=== PATIENT | female | born 1980 | race Caucasian/White ===

== ENCOUNTER 2019-05-04 10:02 | Emergency (ER) | payer OTHER ==
[~2019-05-04] VITALS: Ht 160 cm; Wt 73.0 kg
[2019-05-04] MEDS ORDERED: SODIUM CHLORIDE 0.9% 1,000 ML IVB ONE (10:54)
[2019-05-04] MEDS ORDERED: ONDANSETRON HCL 4 MG/2 ML VIAL IV ONE (11:00)
[2019-05-04] MEDS ORDERED: MORPHINE SULFATE 4 MG/ML SYR/VIAL IV ONE ×2 (11:00→15:30)
[2019-05-04 13:35] LABS: Basophils # (auto) 0.1 uL; Basophils % (auto) 0.7 % (0.0-2.0); Eosinophils # (auto) 0.2 uL; Hematocrit 35.6 % (36.0-46.0); Hemoglobin 11.9 g/dL (12.2-16.2); Lymphocytes # (auto) 3.3 uL; Lymphocytes % (auto) 33.2 % (10.0-50.0); Mean Corpuscular Hemoglobin 30.2 pg (28.0-32.0); Mean Corpuscular Hgb Conc. 33.4 g/dL (32.0-36.0); Mean Corpuscular Volume 90.5 fL (80.0-100.0); Monocytes # (auto) 0.4 uL; Monocytes % (auto) 4.2 % (0.0-12.0); Neutrophils % (auto) 59.9 % (37.0-80.0); Platelet Count (auto) 344 10^3/uL (140-450); Red Blood Cells 3.93 10^6/uL (4.0-5.20); Red Cell Distribution Width 13.5 % (11.8-14.3)
[2019-05-04 13:51] LABS: Albumin 3.5 g/dL (3.4-5.0); BUN/Creatinine Ratio 13.2; Calcium 8.3 mg/dL (8.5-10.1)
[2019-05-04 13:54] LABS: Bilirubin, Total 0.9 mg/dL (0.2-1.0); Total Protein 7.1 g/dL (6.4-8.2)
[2019-05-04] MEDS ORDERED: VALPROATE INJ 1,000 MG in SODIUM CHL 0.9% 100 ML IV ONE (14:30)
[2019-05-04 16:14] VITALS: BP 131/81
== END 2019-05-04 16:35 | disposition home or self-care (01) ==
LOC: ER 10:02 → EDBD 10:02 → ER 16:35
DX: G40.409 Other generalized epilepsy and epileptic syndromes, not intractable, without status epilepticus (principal); G89.29 Other chronic pain; M54.89 Other dorsalgia; R11.2 Nausea with vomiting, unspecified; I10 Essential (primary) hypertension; F17.210 Nicotine dependence, cigarettes, uncomplicated; Z98.51 Tubal ligation status; Z98.890 Other specified postprocedural states; Z88.6 Allergy status to analgesic agent; Z88.8 Allergy status to other drugs, medicaments and biological substances
CPT/HCPCS: 36415; 80053; 80164; 85025; 94761; 96361; 96365; 96375; 96376; 99283; J2270; J2405

== ENCOUNTER 2019-07-21 14:55 | Emergency (ER) | payer OTHER ==
[~2019-07-21] VITALS: Ht 167.6 cm; Wt 83.9 kg
[2019-07-21 16:26] LABS: Basophils # (auto) 0 uL; Basophils % (auto) 0.3 % (0.0-2.0); Eosinophils # (auto) 0.1 uL; Eosinophils % (auto) 1.1 % (0.0-7.0); Hematocrit 40.4 % (36.0-46.0); Hemoglobin 13.6 g/dL (12.2-16.2); Lymphocytes # (auto) 1.2 uL; Lymphocytes % (auto) 14.4 % (10.0-50.0); Mean Corpuscular Hemoglobin 30.8 pg (28.0-32.0); Mean Corpuscular Hgb Conc. 33.8 g/dL (32.0-36.0); Mean Corpuscular Volume 91.1 fL (80.0-100.0); Monocytes # (auto) 0.4 uL; Monocytes % (auto) 4.7 % (0.0-12.0); Neutrophils # (auto) 6.6 uL; Neutrophils % (auto) 79.5 % (37.0-80.0); Platelet Count (auto) 316 10^3/uL (140-450); Red Blood Cells 4.43 10^6/uL (4.0-5.20); Red Cell Distribution Width 14.1 % (11.8-14.3); White Blood Cell 8.3 10^3/uL (4.4-10.8)
[2019-07-21 16:31] LABS: Urine WBC None Seen /hpf (0 - 5)
[2019-07-21 16:38] LABS: Urine Bacteria NONE SEEN /hpf (None Seen); Urine Blood Negative /uL (Negative); Urine Specific Gravity 1.012 (1.001-1.035)
[2019-07-21 16:39] LABS: Albumin 3.3 g/dL (3.4-5.0); Potassium 3.6 mmol/L (3.5-5.1)
[2019-07-21 16:42] LABS: BUN/Creatinine Ratio 8.4; Bilirubin, Total 0.4 mg/dL (0.2-1.0); Total Protein 7.3 g/dL (6.4-8.2)
[2019-07-21] MEDS ORDERED: LEVETIRACETAM INJ 1,000 MG in D5W 5% 100 ML IV ONE (16:45)
[2019-07-21 17:44] VITALS: BP 135/91
[2019-07-21] MEDS ORDERED: ACETAMINOPHEN 650 mg PER 20 mL UD GT ONE (19:00)
== END 2019-07-21 19:05 | disposition home or self-care (01) ==
LOC: EDBD 14:55 → ER 14:55
DX: G40.909 Epilepsy, unspecified, not intractable, without status epilepticus (principal); R41.82 Altered mental status, unspecified; I10 Essential (primary) hypertension; Z88.8 Allergy status to other drugs, medicaments and biological substances
CPT/HCPCS: 36415; 70450; 72125; 80053; 80164; 81001; 81025; 85025; 96365; 99284; J1953; J7060

== ENCOUNTER 2019-09-24 14:35 | Emergency (ER) | payer OTHER ==
[~2019-09-24] VITALS: Ht 172.7 cm; Wt 81.6 kg
[2019-09-24 15:24] LABS: Basophils # (auto) 0 uL; Basophils % (auto) 0.5 % (0.0-2.0); Eosinophils # (auto) 0.3 uL; Eosinophils % (auto) 3.3 % (0.0-7.0); Hematocrit 37.2 % (36.0-46.0); Hemoglobin 12.4 g/dL (12.2-16.2); Lymphocytes # (auto) 2.4 uL; Lymphocytes % (auto) 29.2 % (10.0-50.0); Mean Corpuscular Hemoglobin 31.3 pg (28.0-32.0); Mean Corpuscular Hgb Conc. 33.4 g/dL (32.0-36.0); Mean Corpuscular Volume 93.7 fL (80.0-100.0); Monocytes # (auto) 0.4 uL; Monocytes % (auto) 5.3 % (0.0-12.0); Neutrophils % (auto) 61.7 % (37.0-80.0); Nucleated Red Blood Cells % 0.1 %; Platelet Count (auto) 372 10^3/uL (140-450); Red Blood Cells 3.97 10^6/uL (4.0-5.20); Red Cell Distribution Width 12.9 % (11.8-14.3)
[2019-09-24 15:38] LABS: Albumin 3.6 g/dL (3.4-5.0); Calcium 9.2 mg/dL (8.5-10.1); Potassium 3.8 mmol/L (3.5-5.1)
[2019-09-24 15:40] LABS: BUN/Creatinine Ratio 10.3; Bilirubin, Total 0.3 mg/dL (0.2-1.0); Total Protein 7.4 g/dL (6.4-8.2)
[2019-09-24] MEDS ORDERED: LORazepam 2MG/ML-1ML VIAL ONE (17:09)
[2019-09-24] MEDS ORDERED: LORazepam 2MG/ML-1ML VIAL IV ONE (17:15)
[2019-09-24] MEDS ORDERED: VALPROATE INJ 1,000 MG in SODIUM CHL 0.9% 100 ML IV ONE (17:15)
[2019-09-24 17:39] LABS: Urine Bacteria FEW /hpf (None Seen); Urine Blood Negative /uL (Negative); Urine Hyaline Cast FEW /lpf (0 - 2); Urine Mucus FEW (None Seen); Urine Specific Gravity 1.011 (1.001-1.035); Urine WBC 10 /hpf (0 - 5)
[2019-09-24 17:46] LABS: Alcohol, Urine < 3.0 mg/dL (0-5); Amphetamine Screen, Urine NEGATIVE (NEGATIVE); Barbiturate Scree,Urine NEGATIVE (NEGATIVE); Benzodiazephine Screen, Urine NEGATIVE (NEGATIVE); Cannabinoid Screen, Urine NEGATIVE (NEGATIVE); Cocaine Screen, Urine NEGATIVE (NEGATIVE); Opiate Scree,Urine POSITIVE (NEGATIVE); Phencyclidine Screen, Urine NEGATIVE (NEGATIVE)
[2019-09-24 20:00] VITALS: BP 109/72
[2019-09-24] MEDS ORDERED: TEMAZEPAM 15 MG CAP PO PRN (20:45)
[2019-09-24] MEDS ORDERED: ALPRAZolam 0.5 MG TAB PO PRN (20:45)
[2019-09-24] MEDS ORDERED: LORazepam 2MG/ML-1ML VIAL IV PRN (20:45)
[2019-09-24] MEDS ORDERED: ACETAMINOPHEN 325 MG TAB PO PRN (20:45)
[2019-09-24] MEDS ORDERED: ONDANSETRON HCL 4 MG/2 ML VIAL IV PRN (20:45)
[2019-09-24] MEDS ORDERED: cefTRIAXone 1GM/50ML D5W 50 ML IV ONE (20:45)
[2019-09-24] MEDS ORDERED: AMITRIPTYLINE HCL 25 MG TAB PO SCH (22:00)
[2019-09-24] MEDS ORDERED: LEVETIRACETAM 500 MG TAB PO SCH (22:00)
[2019-09-24] MEDS ORDERED: FAMOTIDINE 20 MG TAB PO SCH (22:00)
[2019-09-25] MEDS ORDERED: cefTRIAXone 1GM/50ML D5W 50 ML IV SCH (09:00)
[2019-10-01] MEDS ORDERED: ZONI100C43 PO (14:34)
== END 2019-09-24 20:54 | disposition left against medical advice (07) ==
LOC: EDBD 14:35 → ER 14:35
DX: S09.90XA Unspecified injury of head, initial encounter (principal); R56.9 Unspecified convulsions; N39.0 Urinary tract infection, site not specified; W19.XXXA Unspecified fall, initial encounter; Y93.89 Activity, other specified; Y92.89 Other specified places as the place of occurrence of the external cause; Y99.8 Other external cause status
CPT/HCPCS: 36415; 70450; 71045; 72125; 80053; 80164; 80307; 81001; 83735; 85025; 93005; 96365; 96375; 99285; J2060

== ENCOUNTER 2020-05-12 20:04 | Emergency (ER) | payer OTHER ==
[~2020-05-12] VITALS: Ht 170.2 cm; Wt 74.8 kg
[~2020-05-12 20:04] MED LIST: ZONI100C43 PO
[2020-05-12] MEDS ORDERED: HYDROcodone-ACET 10/325MG TAB PO ONE (22:15)
[2020-05-12] MEDS ORDERED: ONDANSETRON HCL 4 MG/2 ML VIAL IV ONE (22:45)
[2020-05-12] MEDS ORDERED: MORPHINE SULFATE 4 MG/ML SYR/VIAL IV ONE (22:45)
[2020-05-13] MEDS ORDERED: MORPHINE SULF INJ 2 MG/ML SYRINGE 1ML IV ONE (00:15)
[2020-05-13 00:37] VITALS: BP 126/72
[2020-05-15] MEDS ORDERED: InsuLIN REG 1unit/0.01ml Soln (100units/ml) ONE (08:59)
[2020-05-15] MEDS ORDERED: SODIUM BICARBONATE 8.4% INJ 50ML SYRINGE ONE (08:59)
[2020-05-15] MEDS ORDERED: DEXTROSE 50% SYRINGE 50 ML IV ONE (08:59)
[2020-05-15] MEDS ORDERED: FUROSEMIDE 40 MG/4 ML VIAL ONE (09:12)
== END 2020-05-13 00:52 | disposition home or self-care (01) ==
LOC: EDBD 20:04 → ER 20:11
DX: S92.242A Displaced fracture of medial cuneiform of left foot, initial encounter for closed fracture (principal); F41.9 Anxiety disorder, unspecified; F32.9 Major depressive disorder, single episode, unspecified; I10 Essential (primary) hypertension; Z79.899 Other long term (current) drug therapy; Z88.8 Allergy status to other drugs, medicaments and biological substances; Z88.6 Allergy status to analgesic agent; X50.1XXA Overexertion from prolonged static or awkward postures, initial encounter; Y93.89 Activity, other specified; Y92.89 Other specified places as the place of occurrence of the external cause; Y99.8 Other external cause status
CPT/HCPCS: 29515; 73630; 96374; 96375; 96376; 99284; J2270; J2405; J1815

== ENCOUNTER 2020-05-14 15:02 | Inpatient (IN) | payer OTHER ==
[~2020-05-14] VITALS: Ht 157.5 cm; Wt 64.5 kg
[2020-05-14] MEDS ORDERED: SODIUM CHLORIDE 0.9% 1,000 ML IV ONE ×3 (15:16→17:15)
[2020-05-14 16:13] LABS: Basophils # (auto) 0 10 ^3/uL (0-0.2); Basophils % (auto) 0.4 % (0.0-2.0); Eosinophils # (auto) 0.2 10 ^3/uL (0-0.8); Eosinophils % (auto) 1.4 % (0.0-7.0); Hematocrit 33.1 % (36.0-46.0); Hemoglobin 10.4 g/dL (12.2-16.2); Lymphocytes # (auto) 2.4 10 ^3/uL (0.4-5.4); Lymphocytes % (auto) 19.2 % (10.0-50.0); Mean Corpuscular Hemoglobin 28.9 pg (28.0-32.0); Mean Corpuscular Hgb Conc. 31.6 g/dL (32.0-36.0); Mean Corpuscular Volume 91.7 fL (80.0-100.0); Monocytes # (auto) 1.2 10 ^3/uL (0-1.3); Monocytes % (auto) 9.5 % (0.0-12.0); Neutrophils # (auto) 8.6 10 ^3/uL (1.6-8.6); Neutrophils % (auto) 69.5 % (37.0-80.0); Platelet Count (auto) 375 10^3/uL (140-450); Red Blood Cells 3.61 10^6/uL (4.0-5.20); Red Cell Distribution Width 14.5 % (11.8-14.3); White Blood Cell 12.3 10^3/uL (4.4-10.8)
[2020-05-14 16:31] LABS: Potassium 4.9 mmol/L (3.5-5.1)
[2020-05-14 16:37] LABS: Albumin 3.3 g/dL (3.4-5.0); BUN/Creatinine Ratio 7.8; Bilirubin, Total 0.8 mg/dL (0.2-1.0); Calcium 8.5 mg/dL (8.5-10.1); Total Protein 7.1 g/dL (6.4-8.2)
[2020-05-14 17:22] LABS: Acetaminophen < 2.0 ug/mL (10-30); Salicylate < 1.7 mg/dL (2.8-20.0)
[2020-05-14] MEDS ORDERED: NOREPINEPHRINE 8 MG/250ML KIT 250 ML IV ONE (17:36)
[2020-05-14] MEDS: NOREPINEPHRINE 8 MG/250ML KIT 250 ML IV SCH (17:41)
[2020-05-14 17:42] LABS: INR 1.08 (0.9-1.15)
[2020-05-14] MEDS ORDERED: ENOXAPARIN SOD 100 MG/1 ML SYRINGE SC ONE (17:45)
[2020-05-14 18:20] LABS: Alcohol, Urine < 3.0 mg/dL (0-10); Amphetamine Screen, Urine NEGATIVE (NEGATIVE); Barbiturate Scree,Urine NEGATIVE (NEGATIVE); Benzodiazephine Screen, Urine NEGATIVE (NEGATIVE); Cannabinoid Screen, Urine NEGATIVE (NEGATIVE); Cocaine Screen, Urine NEGATIVE (NEGATIVE); Opiate Scree,Urine POSITIVE (NEGATIVE); Phencyclidine Screen, Urine NEGATIVE (NEGATIVE)
[2020-05-14 18:35] LABS: Urine Bacteria NONE SEEN /hpf (None Seen); Urine Blood Negative /uL (Negative); Urine Hyaline Cast MANY /lpf (0 - 2); Urine Mucus FEW (None Seen); Urine Specific Gravity 1.027 (1.001-1.035); Urine WBC 4 /hpf (0 - 5)
[2020-05-14] MEDS ORDERED: ZOLPIDEM TARTRATE 5 MG TAB PO PRN (21:15)
[2020-05-14] MEDS ORDERED: LORazepam 0.5 MG TAB PO PRN (21:15)
[2020-05-14] MEDS ORDERED: ONDANSETRON HCL 4 MG/2 ML VIAL IV PRN (21:15)
[2020-05-14] MEDS ORDERED: ACETAMINOPHEN 325 MG TAB PO PRN (21:15)
[2020-05-14] MEDS ORDERED: NITROGLYCERIN 0.4 MG SL TAB SL PRN (21:15)
[2020-05-14] MEDS ORDERED: MORPHINE SULF INJ 2 MG/ML SYRINGE 1ML IV PRN (21:15)
[2020-05-14] MEDS: CARVEDILOL 3.125 MG TAB PO SCH (22:00)
[2020-05-14] MEDS: ATORVASTATIN 20 MG TAB PO SCH (22:00)
[2020-05-14] MEDS: SODIUM CHLORIDE 0.9% 1,000 ML IV SCH (22:19)
[2020-05-14 23:51] LABS: Albumin 2.8 g/dL (3.4-5.0); Anion Gap 10 (5-15); BUN/Creatinine Ratio 8.5; Blood Urea Nitrogen 33 mg/dL (7-18); Calcium 7.8 mg/dL (8.5-10.1); Carbon Dioxide 19 mmol/L (21-32); Chloride 109 mmol/L (98-107); GFR African American 17 mL/min; GFR Non-African American 14 mL/min; Glucose 101 mg/dL (74-106); Sodium 138 mmol/L (136-145)
[2020-05-14 23:54] LABS: Alanine Aminotransferase 36 U/L (13-56); Alkaline Phosphatase 99 U/L (45-117); Aspartate Aminotransferase 25 U/L (15-37); Bilirubin, Total 0.6 mg/dL (0.2-1.0); Total Protein 6.7 g/dL (6.4-8.2)
[2020-05-15] MEDS: SODIUM CHLORIDE 0.9% 1,000 ML IV SCH (07:02)
[2020-05-15 08:06] LABS: Albumin 3.2 g/dL (3.4-5.0); Calcium 8.2 mg/dL (8.5-10.1)
[2020-05-15 08:10] LABS: BUN/Creatinine Ratio 13.7; Basophils # (auto) 0.1 10 ^3/uL (0-0.2); Basophils % (auto) 0.8 % (0.0-2.0); Bilirubin, Total 0.5 mg/dL (0.2-1.0); Eosinophils # (auto) 0 10 ^3/uL (0-0.8); Eosinophils % (auto) 0.1 % (0.0-7.0); Hematocrit 34.2 % (36.0-46.0); Hemoglobin 11.2 g/dL (12.2-16.2); Lymphocytes # (auto) 0.9 10 ^3/uL (0.4-5.4); Lymphocytes % (auto) 8.2 % (10.0-50.0); Mean Corpuscular Hemoglobin 29.3 pg (28.0-32.0); Mean Corpuscular Hgb Conc. 32.7 g/dL (32.0-36.0); Mean Corpuscular Volume 89.6 fL (80.0-100.0); Monocytes # (auto) 0.3 10 ^3/uL (0-1.3); Monocytes % (auto) 2.8 % (0.0-12.0); Neutrophils # (auto) 9.5 10 ^3/uL (1.6-8.6); Neutrophils % (auto) 88.1 % (37.0-80.0); Platelet Count (auto) 330 10^3/uL (140-450); Red Blood Cells 3.81 10^6/uL (4.0-5.20); Red Cell Distribution Width 13.9 % (11.8-14.3); Total Protein 7.3 g/dL (6.4-8.2); White Blood Cell 10.8 10^3/uL (4.4-10.8)
[2020-05-15 08:18] LABS: Potassium 5.7 mmol/L (3.5-5.1)
[2020-05-15] MEDS ORDERED: InsuLIN REG 1unit/0.01ml Soln (100units/ml) IV ONE (08:45)
[2020-05-15] MEDS ORDERED: SODIUM BICARBONATE 8.4 % INJ 50ML VIAL IV ONE (08:45)
[2020-05-15] MEDS ORDERED: FUROSEMIDE 40 MG/4 ML VIAL IV ONE (08:45)
[2020-05-15] MEDS ORDERED: DEXTROSE (50%) 50ML SYRG IV ONE (08:45)
[2020-05-15] MEDS ORDERED: SODIUM CHLORIDE 0.9% 1,000 ML IV ONE (08:45)
[2020-05-15] MEDS: ASPirin 81 mg TAB PO SCH (09:44)
[2020-05-15] MEDS: DOCUSATE SOD 100 MG CAP PO SCH (09:45)
[2020-05-15] MEDS: CLOPIDOGREL BISULFATE 75 MG TAB PO SCH (09:47)
[2020-05-15] MEDS: CARVEDILOL 3.125 MG TAB PO SCH (09:47)
[2020-05-15] MEDS ORDERED: ENOXAPARIN SOD 100 MG/1 ML SYRINGE SC SCH (10:00)
[2020-05-15] MEDS ORDERED: LISINOPRIL 10 MG TAB PO SCH (10:00)
[2020-05-15] MEDS: NOREPINEPHRINE 8 MG/250ML KIT 250 ML IV SCH (11:11)
[2020-05-15] MEDS: SODIUM BICARBONATE 50ML VIAL 50 ML in SOD CHL 0.45% 1,000 ML IV SCH ×2 (12:03→18:33)
[2020-05-15 12:05] LABS: Potassium 4.2 mmol/L (3.5-5.1)
[2020-05-15 13:08] LABS: Sodium Urine 128 mmol/L (40-220)
[2020-05-15 13:09] LABS: Protein, Urine 7.8 mg/dL (0.0-11.9)
[2020-05-15 13:17] LABS: Creatinine, Urine 11 mg/dL (30.0-125.0)
--- NOTE | 2020-05-15 13:30 | NUR ---
REPORT RECEIVED FROM GERALDO IN ER. WILL AWAIT PATIENT.
[2020-05-15 13:50] VITALS: BP 99/68
--- NOTE | 2020-05-15 13:50 | NUR ---
PATIENT IS A/O X 4 BED LOCKED IN LOWEST POSITION WITH TWO SIDE RAILS UP AND CALL LIGHT IN REACH.
[2020-05-15] MEDS ORDERED: DOXYCYCLINE 100 MG TAB/CAP PO ONE (15:45)
[2020-05-15] MEDS ORDERED: cefTRIAXone 1GM/50ML D5W 50 ML IV ONE (15:45)
[2020-05-15 17:29] VITALS: BP 95/49
--- NOTE | 2020-05-15 18:28 | NUR ---
TELE PSYCH MONITOR STILL IN USE WILL ENDORSE TO THE NOC NURSE.
--- NOTE | 2020-05-15 19:30 | NUR ---
Opening Shift Note Assumed care of patient, awake and alert. No S/S of distress/SOB or pain. Instructed on POC and to call for assist PRN, will continue to monitor for changes Q1hr and PRN.
--- NOTE | 2020-05-15 20:26 | NUR ---
patient transferred to room 218A with roger Report given no distress noted at time of transfer.
[2020-05-15 21:00] VITALS: BP 124/68
[2020-05-15] MEDS: DOXYCYCLINE 100 MG TAB/CAP PO SCH (21:53)
[2020-05-15] MEDS: ATORVASTATIN 20 MG TAB PO SCH (21:53)
[2020-05-15] MEDS ORDERED: ENOXAPARIN SOD 80 MG/0.8ML SYRINGE SC SCH (22:00)
[2020-05-16] MEDS: SODIUM BICARBONATE 50ML VIAL 50 ML in SOD CHL 0.45% 1,000 ML IV SCH (04:43)
[2020-05-16 05:00] VITALS: BP 113/72
[2020-05-16 06:56] LABS: Potassium 3.9 mmol/L (3.5-5.1)
[2020-05-16 07:06] LABS: Albumin 2.6 g/dL (3.4-5.0); BUN/Creatinine Ratio 23.2; Bilirubin, Total 0.4 mg/dL (0.2-1.0); Calcium 8.3 mg/dL (8.5-10.1); Phosphorus 1.8 mg/dL (2.5-4.90); Total Protein 5.7 g/dL (6.4-8.2)
--- NOTE | 2020-05-16 08:00 | NUR ---
Received pt resting in bed, call light with in reach, pt has lloyd draining to gravity, pt has a left leg splint, sitter at bed side will continue to monitor pt.
[2020-05-16] MEDS ORDERED: POTASSIUM PHOSPHATE 44 MEQ in D5W 5% 250 ML IV ONE (08:45)
[2020-05-16] MEDS ORDERED: cefTRIAXone 1GM/50ML D5W 50 ML IV SCH (09:00)
[2020-05-16] MEDS: ASPirin 81 mg TAB PO SCH (09:26)
[2020-05-16] MEDS: DOCUSATE SOD 100 MG CAP PO SCH (09:26)
[2020-05-16] MEDS: CLOPIDOGREL BISULFATE 75 MG TAB PO SCH (09:27)
[2020-05-16] MEDS: DOXYCYCLINE 100 MG TAB/CAP PO SCH (09:27)
[2020-05-16] MEDS ORDERED: PERCOT PO (11:40)
[2020-05-16] MEDS ORDERED: DIVA250T51 PO (11:40)
[2020-05-16] MEDS ORDERED: CELE100C82 PO (11:40)
[2020-05-16] MEDS ORDERED: ALPR0.5T PO (11:40)
[2020-05-16] MEDS ORDERED: NEUTRA-PHOS TABLET PO ONE (12:15)
--- NOTE | 2020-05-16 12:35 | NUR ---
Dr. Bernard at bed side as per pt's request to assess pt's lt foot, doctor informed pt that a practice office associate consult has been place for a practice office associate to see her for her foot, pt informed doctor that she already has an appointment with her pcp and will have an authorization process for a practice office associate, pt stated that she does not want to stay in the hospital for a podiatry follow up and that she will do it as an out pt. Dr. Bernard explained to the pt to follow up with the practice office associate as soon as possible if she does not want to stay in the hospital. Pt decided to be discharge now and f/u as an out pt.
--- NOTE | 2020-05-16 14:16 | NUR ---
Discharge instructions given as ordered. Encourage to follow up with PMD, psych, cardio/Dr. Harding, and the rod hanger as instructed. All questions and concerns addressed. Patient verbalized understanding. Medication reconciliation form completed and copy given to patient. No home medications held in Pharmacy returned to patient, and no needed vaccines to be given. IV removed with catheter intact, pressure dressing applied, lloyd catheter removed. Telemetry unit returned to ICU.
--- NOTE | 2020-05-16 14:33 | NUR ---
Patient taken to vehicle via wheelchair with all personal belongings, accompanied by staff member, family member waiting out of the hospital. No distress noted at time of departure.
[2020-05-16] MEDS ORDERED: NEUTRA-PHOS TABLET PO SCH (18:00)
== END 2020-05-16 14:32 | disposition home or self-care (01) | DRG 812 ==
LOC: EDUNIT# 15:02 → ER 15:02 → EDBD 15:02 → TELE 15:03 → TELE-WESTW 05-15 04:03 → TELE 05-15 04:33 → TELE-WESTW 05-15 13:53 → TELE-CENTR 05-15 20:25
PROVIDERS: ADMIT Hospitalist; ATTEND Hospitalist
DX: T45.0X1A Poisoning by antiallergic and antiemetic drugs, accidental (unintentional), initial encounter (principal); N17.0 Acute kidney failure with tubular necrosis; I21.A1 Myocardial infarction type 2; R57.8 Other shock; E87.2 Acidosis; E87.5 Hyperkalemia; E87.70 Fluid overload, unspecified; E86.0 Dehydration; D72.829 Elevated white blood cell count, unspecified; D64.9 Anemia, unspecified; E88.09 Other disorders of plasma-protein metabolism, not elsewhere classified; G92 Toxic encephalopathy; E66.9 Obesity, unspecified; F11.20 Opioid dependence, uncomplicated; G89.29 Other chronic pain; F41.9 Anxiety disorder, unspecified; F32.9 Major depressive disorder, single episode, unspecified; I10 Essential (primary) hypertension; R56.9 Unspecified convulsions; Z82.49 Family history of ischemic heart disease and other diseases of the circulatory system; Z83.3 Family history of diabetes mellitus; Z68.26 Body mass index [BMI] 26.0-26.9, adult; E83.39 Other disorders of phosphorus metabolism; Z88.5 Allergy status to narcotic agent; Z88.8 Allergy status to other drugs, medicaments and biological substances; Y92.89 Other specified places as the place of occurrence of the external cause
CPT/HCPCS: 36415; 70450; 71045; 76775; 80048; 80053; 80061; 80307; 80320; 80329; 81001; 81025; 82306; 82570; 83970; 84100; 84156; 84300; 84484; 85025; 85610; 87040; 87086; 93005; 93306; 99291; G0378; J0696; J2405; J7060

== ENCOUNTER 2020-09-27 11:15 | Emergency (ER) | payer OTHER ==
[~2020-09-27] VITALS: Ht 170.2 cm; Wt 72.6 kg
[~2020-09-27 11:15] MED LIST changes: +ALPR0.5T PO; +DIVA250T4 PO; +PERCOT PO
[2020-09-27] MEDS ORDERED: SODIUM CHLORIDE 0.9% 1,000 ML IV ONE (11:30)
[2020-09-27 12:03] LABS: Eosinophils # (auto) 0.6 10 ^3/uL (0-0.8); Hemoglobin 10.9 g/dL (12.2-16.2); Lymphocytes # (auto) 2.6 10 ^3/uL (0.4-5.4); Monocytes # (auto) 0.5 10 ^3/uL (0-1.3)
[2020-09-27 12:04] LABS: Basophils # (auto) 0.1 10 ^3/uL (0-0.2); Basophils % (auto) 0.6 % (0.0-2.0); Eosinophils % (auto) 4.9 % (0.0-7.0); Hematocrit 32.5 % (36.0-46.0); Lymphocytes % (auto) 22.1 % (10.0-50.0); Mean Corpuscular Hemoglobin 29.4 pg (28.0-32.0); Mean Corpuscular Hgb Conc. 33.6 g/dL (32.0-36.0); Mean Corpuscular Volume 87.6 fL (80.0-100.0); Monocytes % (auto) 4.3 % (0.0-12.0); Neutrophils # (auto) 8.1 10 ^3/uL (1.6-8.6); Neutrophils % (auto) 68.1 % (37.0-80.0); Platelet Count (auto) 465 10^3/uL (140-450); Red Blood Cells 3.71 10^6/uL (4.0-5.20); Red Cell Distribution Width 14.1 % (11.8-14.3); White Blood Cell 11.9 10^3/uL (4.4-10.8)
[2020-09-27 12:14] LABS: Albumin 3.3 g/dL (3.4-5.0); Anion Gap 6 (5-15); Blood Urea Nitrogen 13 mg/dL (7-18); Calcium 8.7 mg/dL (8.5-10.1); Carbon Dioxide 28 mmol/L (21-32); Chloride 104 mmol/L (98-107); Glucose 92 mg/dL (74-106); Potassium 3.8 mmol/L (3.5-5.1); Sodium 138 mmol/L (136-145)
[2020-09-27 12:24] LABS: Alanine Aminotransferase 37 U/L (13-56); Alkaline Phosphatase 138 U/L (45-117); Aspartate Aminotransferase 20 U/L (15-37); Bilirubin, Total 0.3 mg/dL (0.2-1.0); GFR African American 79 mL/min; GFR Non-African American 66 mL/min; Total Protein 7.4 g/dL (6.4-8.2)
[2020-09-27 13:37] VITALS: BP 106/49
[2020-09-27 14:02] LABS: Urine Bacteria FEW /hpf (None Seen); Urine Blood Negative /uL (Negative); Urine Hyaline Cast FEW /lpf (0 - 2); Urine WBC 3 /hpf (0 - 5)
[2020-09-27 14:31] LABS: Amphetamine Screen, Urine NEGATIVE (NEGATIVE); Barbiturate Scree,Urine NEGATIVE (NEGATIVE); Benzodiazephine Screen, Urine POSITIVE (NEGATIVE); Cannabinoid Screen, Urine POSITIVE (NEGATIVE); Cocaine Screen, Urine NEGATIVE (NEGATIVE); Opiate Scree,Urine NEGATIVE (NEGATIVE); Phencyclidine Screen, Urine NEGATIVE (NEGATIVE)
== END 2020-09-27 16:42 | disposition home or self-care (01) ==
LOC: EDBD 11:15 → ER 11:15
DX: T50.901A Poisoning by unspecified drugs, medicaments and biological substances, accidental (unintentional), initial encounter (principal); G92 Toxic encephalopathy; R41.82 Altered mental status, unspecified; R07.9 Chest pain, unspecified; F41.9 Anxiety disorder, unspecified; F32.9 Major depressive disorder, single episode, unspecified; Z98.51 Tubal ligation status; Z88.6 Allergy status to analgesic agent; Y92.89 Other specified places as the place of occurrence of the external cause
CPT/HCPCS: 36415; 70450; 71045; 80053; 80307; 81001; 84484; 85025; 93005; 96360; 99285; J7030

== ENCOUNTER 2020-12-15 12:21 | Inpatient (IN) | payer OTHER ==
[~2020-12-15] VITALS: Ht 157.5 cm; Wt 88.0 kg
[2020-12-15] VITALS (10 sets, daily range): BP systolic 55–157; BP diastolic 27–116
[2020-12-15] MEDS ORDERED: NALOXONE HCL 1MG/ML 2ML SYRINGE ONE (12:44)
[2020-12-15] MEDS ORDERED: ONDANSETRON HCL 4 MG/2 ML VIAL ONE (12:49)
[2020-12-15] MEDS ORDERED: PROPOFOL 100 ML IV ONE (13:06)
[2020-12-15] MEDS ORDERED: ETOMIDATE (2MG/ML) 20ML VIAL IV ONE (13:07)
[2020-12-15] MEDS ORDERED: SUCCINYLCHOLINE CHLORIDE 20 MG/ML 10ML VIAL IV ONE ×2 (13:07→14:00)
[2020-12-15] MEDS ORDERED: DOPamine 1600MCG/ML D5W 250 ML IV ONE (13:13)
[2020-12-15] MEDS: DOPamine 1600MCG/ML D5W 250 ML IV SCH (13:15)
[2020-12-15] MEDS ORDERED: NOREPINEPHRINE 8 MG/250ML KIT 250 ML IV SCH (13:15)
[2020-12-15] MEDS: MIDAZOLAM DRIP 50 mg/50mL 50 ML IV SCH ×2 (13:32→20:04)
[2020-12-15 13:33] LABS: Urine Bacteria NONE SEEN /hpf (None Seen); Urine Blood Negative /uL (Negative); Urine Hyaline Cast MOD /lpf (0 - 2); Urine Mucus FEW (None Seen); Urine WBC 2 /hpf (0 - 5)
[2020-12-15 13:53] LABS: Amphetamine Screen, Urine NEGATIVE (NEGATIVE); Barbiturate Scree,Urine NEGATIVE (NEGATIVE); Benzodiazephine Screen, Urine POSITIVE (NEGATIVE); Cannabinoid Screen, Urine NEGATIVE (NEGATIVE); Cocaine Screen, Urine NEGATIVE (NEGATIVE); Opiate Scree,Urine NEGATIVE (NEGATIVE); Phencyclidine Screen, Urine NEGATIVE (NEGATIVE)
[2020-12-15] MEDS ORDERED: NALOXONE HCL 1MG/ML 2ML SYRINGE IV ONE (14:00)
[2020-12-15] MEDS ORDERED: ONDANSETRON HCL 4 MG/2 ML VIAL IV ONE (14:00)
[2020-12-15] MEDS ORDERED: PHENYLEPHRINE IV 250 ML IV ONE ×2 (14:02→14:11)
[2020-12-15] MEDS: PHENYLEPHRINE IV 250 ML IV SCH ×2 (14:05→20:04)
[2020-12-15] MEDS ORDERED: PHENYLEPHRINE IV 250 ML IV SCH (14:15)
[2020-12-15] MEDS ORDERED: ACETAMINOPHEN 650 mg PER 20.3 mL UD GT ONE (14:45)
[2020-12-15] MEDS ORDERED: cefTRIAXone 1GM/50ML D5W 50 ML IV ONE (14:45)
[2020-12-15 14:51] LABS: Hemoglobin 12.7 g/dL (12.2-16.2); Mean Corpuscular Hemoglobin 29.6 pg (28.0-32.0); Mean Corpuscular Hgb Conc. 31.5 g/dL (32.0-36.0); Red Blood Cells 4.29 10^6/uL (4.0-5.20)
[2020-12-15 14:53] LABS: Hematocrit 40.3 % (36.0-46.0); Mean Corpuscular Volume 94.1 fL (80.0-100.0); Platelet Count (auto) 469 10^3/uL (140-450); Red Cell Distribution Width 14.4 % (11.8-14.3); White Blood Cell 15.6 10^3/uL (4.4-10.8)
[2020-12-15 14:56] LABS: Basophils % (manual) 0 (0.0-2.0); Blast Cells 0; Promyelocytes % 0; Reactive Lymphocytes 0
[2020-12-15] MEDS ORDERED: SODIUM BICARBONATE 50ML VIAL 50 ML in SOD CHL 0.45% 1,000 ML IV ONE (15:00)
[2020-12-15] MEDS ORDERED: VANCOMYCIN PER PHARMACY 0 MG IV SCH (15:00)
[2020-12-15] MEDS ORDERED: SODIUM BICARBONATE 8.4 % INJ 50ML VIAL IV ONE (15:00)
[2020-12-15] MEDS ORDERED: SODIUM BICARBONATE 8.4% INJ 50ML SYRINGE ONE (15:06)
[2020-12-15 15:07] LABS: Albumin 2.7 g/dL (3.4-5.0); Anion Gap 21 (5-15); Blood Alcohol < 3.0 mg/dL (0-5); Blood Urea Nitrogen 30 mg/dL (7-18); Calcium 11.2 mg/dL (8.5-10.1); Carbon Dioxide 15 mmol/L (21-32); Chloride 109 mmol/L (98-107); Glucose 117 mg/dL (74-106); Magnesium 3.3 mg/dL (1.6-2.6); Potassium 4.2 mmol/L (3.5-5.1); Sodium 145 mmol/L (136-145)
[2020-12-15] MEDS: PROPOFOL 100 ML IV SCH (15:07)
[2020-12-15 15:16] LABS: Beta HCG, Quantitative < 1 mlU/mL (1-3); Thyroid Stimulating Hormone 2.92 uIU/mL (0.358-3.74)
[2020-12-15 15:21] LABS: Alanine Aminotransferase 65 U/L (13-56); Alkaline Phosphatase 164 U/L (45-117); Aspartate Aminotransferase 99 U/L (15-37); BUN/Creatinine Ratio 9.5; Bilirubin, Total 1.1 mg/dL (0.2-1.0); Creatine Kinase IFCC 1501 U/L (26-192); GFR African American 21 mL/min; GFR Non-African American 17 mL/min; Total Protein 6.5 g/dL (6.4-8.2)
[2020-12-15] MEDS ORDERED: NITROGLYCERIN 0.4 MG SL TAB SL PRN (15:45)
[2020-12-15] MEDS ORDERED: MORPHINE SULF INJ 2 MG/ML SYRINGE 1ML IV PRN (15:45)
[2020-12-15 15:52] LABS: INR 1.28 (0.9-1.15)
[2020-12-15] MEDS ORDERED: MEROPENEM 1GM IVPB 100 ML IV ONE (16:00)
[2020-12-15] MEDS ORDERED: VANCOMYCIN 1GM/250ML 250 ML IV ONE (16:00)
[2020-12-15] MEDS ORDERED: VASOPRESSIN 50 UNITS in D5W 5% 247.5 ML IV SCH (16:15)
[2020-12-15] MEDS ORDERED: DIVA1TAB59 PO (17:28)
[2020-12-15] MEDS ORDERED: NAP500T PO (17:28)
[2020-12-15] MEDS ORDERED: OXYC325T14 PO (17:28)
[2020-12-15] MEDS ORDERED: LEVE500T3 PO (17:28)
[2020-12-15] MEDS ORDERED: FENT25DI2 TOP (17:28)
[2020-12-15] MEDS ORDERED: LISI-648 PO (17:28)
[2020-12-15] MEDS ORDERED: TIZA4TAB3 PO (17:28)
[2020-12-15] MEDS ORDERED: CITA-73 PO (17:28)
[2020-12-15] MEDS ORDERED: AMIT100T75 PO (17:28)
[2020-12-15] MEDS ORDERED: SUMA100T15 PO (17:28)
[2020-12-15] MEDS ORDERED: DexAMETHasone INJECTION 10 MG in D5W 5% 50 ML IV STA (17:29)
[2020-12-15 18:50] LABS: Band Neutrophils % (manual) 21; Eosinophils % (manual) 1 (0-7); Lymphocytes % (manual) 23 (10.0-50.0); Metamyelocytes % 2; Monocytes % (manual) 12 (0-12); Myelocytes % 2
[2020-12-15] MEDS ORDERED: PANTOPRAZOLE 40 MG/10 ML VIAL INJ IV ONE (23:45)
[2020-12-15] MEDS ORDERED: ENOXAPARIN SOD 30 MG/0.3 ML SYRINGE SC ONE (23:45)
[2020-12-16] VITALS (108 sets, daily range): BP systolic 91–229; BP diastolic 4–207
[2020-12-16] MEDS ORDERED: ENOXAPARIN SOD 40 MG/0.4 ML SYRINGE SC ONE (00:05)
[2020-12-16] MEDS ORDERED: PANTOPRAZOLE 40 MG/10 ML VIAL INJ IV ONE (00:05)
[2020-12-16] MEDS ORDERED: PHENYLEPHRINE HCL 10 MG/ML VL ONE ×2 (00:20→03:28)
[2020-12-16] MEDS ORDERED: PHENYLEPHRINE IV 250 ML IV ONE ×2 (00:20→03:28)
[2020-12-16] MEDS ORDERED: NOREPINEPHRINE 8 MG/250ML KIT 250 ML IV ONE (00:21)
[2020-12-16] MEDS ORDERED: NOREPINEPHRINE BITARTRATE 2 ML IV ONE (00:21)
[2020-12-16] MEDS: DexAMETHasone INJECTION 10 MG in D5W 5% 50 ML IV SCH ×2 (00:37→05:56)
[2020-12-16] MEDS ORDERED: SODIUM BICARBONATE 50ML VIAL 100 ML in SOD CHL 0.45% 1,000 ML IV SCH (00:45)
[2020-12-16] MEDS ORDERED: SODIUM BICARBONATE 8.4 % INJ 50ML VIAL IV ONE ×5 (00:45→22:52)
[2020-12-16] MEDS: PHENYLEPHRINE INJ 40 MG in SODIUM CHL 0.9% 246 ML IV SCH ×2 (01:12→04:40)
[2020-12-16 01:13] LABS: Calcium 7.9 mg/dL (8.5-10.1); Magnesium 2.4 mg/dL (1.6-2.6); Potassium 3.8 mmol/L (3.5-5.1)
[2020-12-16] MEDS: MIDAZOLAM DRIP 50 mg/50mL 50 ML IV SCH ×5 (01:13→23:08)
[2020-12-16 01:16] LABS: Lactic Acid w/Reflex 10.7 mmol/L (0.4-2.0)
[2020-12-16] MEDS: NOREPINEPHRINE BITARTRATE 16 MG in SODIUM CHL 0.9% 234 ML IV SCH ×2 (03:26→23:45)
[2020-12-16] MEDS ORDERED: SODIUM BICARBONATE 50ML VIAL 150 ML in SOD CHL 0.45% 1,000 ML IV SCH (06:15)
[2020-12-16] MEDS ORDERED: SODIUM BICARBONATE 8.4% INJ 50ML SYRINGE ONE ×2 (06:16→06:17)
[2020-12-16] MEDS: DOPamine 1600MCG/ML D5W 250 ML IV SCH ×2 (06:34→08:35)
[2020-12-16 06:51] LABS: Basophils # (auto) 0 10 ^3/uL (0-0.2); Basophils % (auto) 0.2 % (0.0-2.0); Eosinophils # (auto) 0 10 ^3/uL (0-0.8); Eosinophils % (auto) 0.1 % (0.0-7.0); Hematocrit 39.7 % (36.0-46.0); Hemoglobin 12.9 g/dL (12.2-16.2); Lymphocytes # (auto) 1.7 10 ^3/uL (0.4-5.4); Lymphocytes % (auto) 13.5 % (10.0-50.0); Mean Corpuscular Hemoglobin 30.2 pg (28.0-32.0); Mean Corpuscular Hgb Conc. 32.4 g/dL (32.0-36.0); Mean Corpuscular Volume 93.1 fL (80.0-100.0); Monocytes # (auto) 0.6 10 ^3/uL (0-1.3); Monocytes % (auto) 5.1 % (0.0-12.0); Neutrophils # (auto) 10.3 10 ^3/uL (1.6-8.6); Neutrophils % (auto) 81.1 % (37.0-80.0); Platelet Count (auto) 316 10^3/uL (140-450); Red Blood Cells 4.27 10^6/uL (4.0-5.20); Red Cell Distribution Width 14.5 % (11.8-14.3); White Blood Cell 12.6 10^3/uL (4.4-10.8)
[2020-12-16 07:06] LABS: Lactic Acid w/Reflex 14.6 mmol/L (0.4-2.0)
[2020-12-16 07:12] LABS: INR 1.51 (0.9-1.15); Partial Thromboplastin Time 51.4 sec (23.0-31.2)
[2020-12-16 07:14] LABS: Potassium 3.6 mmol/L (3.5-5.1)
[2020-12-16 07:20] LABS: Albumin 2.2 g/dL (3.4-5.0); BUN/Creatinine Ratio 14.9; Bilirubin, Total 0.7 mg/dL (0.2-1.0); Calcium 7.7 mg/dL (8.5-10.1); Magnesium 2.4 mg/dL (1.6-2.6); Phosphorus 6.7 mg/dL (2.5-4.90)
[2020-12-16] MEDS ORDERED: MORPHINE SULF INJ 2 MG/ML SYRINGE 1ML IV PRN (07:30)
[2020-12-16] MEDS ORDERED: ACETAMINOPHEN 325 MG TAB PO PRN (07:30)
[2020-12-16] MEDS ORDERED: DOCUSATE SOD 100 MG CAP PO PRN (07:30)
[2020-12-16] MEDS ORDERED: ONDANSETRON HCL 4 MG/2 ML VIAL IV PRN (07:30)
[2020-12-16] MEDS ORDERED: LORazepam 0.5 MG TAB PO PRN (07:30)
[2020-12-16] MEDS ORDERED: ALUM & MAG HYDROX-SIMETH LIQ(MAALOX) 30 ML PO PRN (07:30)
[2020-12-16] MEDS ORDERED: NITROGLYCERIN 0.4 MG SL TAB SL PRN (07:30)
[2020-12-16] MEDS ORDERED: HYDROcodone-ACET 5/325MG TAB PO PRN (07:30)
[2020-12-16] MEDS ORDERED: DEXTROSE (50%) 50ML SYRG IV PRN (07:30)
[2020-12-16] MEDS: VANCOMYCIN 1GM/250ML 250 ML IV SCH (09:00)
[2020-12-16] MEDS: SODIUM BICARBONATE 50ML VIAL 150 ML in D5W 5% 1,000 ML IV SCH ×2 (10:25→20:09)
[2020-12-16] MEDS: ESOMEPRAZOLE 40 MG/5ml VIAL INJ IV SCH (10:32)
[2020-12-16] MEDS: ENOXAPARIN SOD 40 MG/0.4 ML SYRINGE SC SCH (10:33)
[2020-12-16] MEDS: MEROPENEM 1GM IVPB 100 ML IV SCH ×2 (10:34→21:39)
[2020-12-16] MEDS ORDERED: DexAMETHasone INJECTION 10 MG in D5W 5% 50 ML IV SCH (12:00)
[2020-12-16] MEDS: InsuLIN REG 1unit/0.01ml Soln (100units/ml) SC SCH ×2 (12:00→18:09)
[2020-12-16] MEDS: ACCU-CHEK COMFORT CURVE STRIP VI SCH ×2 (12:11→18:01)
[2020-12-16 14:25] LABS: Urine Bacteria FEW /hpf (None Seen); Urine Blood 3+ /uL (Negative); Urine Specific Gravity 1.013 (1.001-1.035); Urine WBC 1 /hpf (0 - 5)
[2020-12-16 14:29] LABS: BUN/Creatinine Ratio 14.7; Calcium 7.3 mg/dL (8.5-10.1); Magnesium 2.2 mg/dL (1.6-2.6)
[2020-12-16 14:41] LABS: Lactic Acid w/Reflex 13.6 mmol/L (0.4-2.0)
[2020-12-16] MEDS: PROPOFOL 100 ML IV SCH (14:45)
[2020-12-16 14:51] LABS: Alcohol, Urine < 3.0 mg/dL (0-10); Amphetamine Screen, Urine NEGATIVE (NEGATIVE); Barbiturate Scree,Urine NEGATIVE (NEGATIVE); Benzodiazephine Screen, Urine POSITIVE (NEGATIVE); Cannabinoid Screen, Urine NEGATIVE (NEGATIVE); Cocaine Screen, Urine NEGATIVE (NEGATIVE); Opiate Scree,Urine NEGATIVE (NEGATIVE); Phencyclidine Screen, Urine NEGATIVE (NEGATIVE)
[2020-12-16] MEDS: CARVEDILOL 3.125 MG TAB GT SCH (22:00)
[2020-12-16] MEDS ORDERED: CALCIUM CHLOR(10%) 100MG/ML 10ML SYRINGE IV ONE (22:52)
[2020-12-16] MEDS ORDERED: DOPamine 1600mCg/ml 400MG/250ml NSorD5 KIT/BAG IV ONE (22:52)
[2020-12-16] MEDS ORDERED: EPINEPHrine HCL 1 MG/10 ML SYRG IV ONE (22:52)
[2020-12-16] MEDS ORDERED: ATROPINE SULF 1 MG/10ml SYR IV ONE (22:52)
[2020-12-17] VITALS (83 sets, daily range): BP systolic 92–165; BP diastolic 54–80
[2020-12-17] MEDS: ACCU-CHEK COMFORT CURVE STRIP VI SCH ×5 (00:07→23:54)
[2020-12-17] MEDS: InsuLIN REG 1unit/0.01ml Soln (100units/ml) SC SCH ×5 (00:09→23:54)
[2020-12-17] MEDS: MIDAZOLAM DRIP 50 mg/50mL 50 ML IV SCH ×4 (02:38→23:55)
[2020-12-17 04:41] LABS: Lactic Acid w/Reflex 3.1 mmol/L (0.4-2.0)
[2020-12-17 04:42] LABS: Potassium 3.3 mmol/L (3.5-5.1)
[2020-12-17 04:51] LABS: Albumin 1.7 g/dL (3.4-5.0); BUN/Creatinine Ratio 28.9; Bilirubin, Direct 0.2 mg/dL (0-0.2); Bilirubin, Total 0.7 mg/dL (0.2-1.0); Calcium 6.9 mg/dL (8.5-10.1); Phosphorus 2.8 mg/dL (2.5-4.90); Total Protein 5.4 g/dL (6.4-8.2)
[2020-12-17 04:57] LABS: Basophils # (auto) 0 10 ^3/uL (0-0.2); Eosinophils # (auto) 0 10 ^3/uL (0-0.8); Eosinophils % (auto) 0.1 % (0.0-7.0); Hematocrit 37.5 % (36.0-46.0); Hemoglobin 12.6 g/dL (12.2-16.2); Lymphocytes # (auto) 0.4 10 ^3/uL (0.4-5.4); Lymphocytes % (auto) 12.4 % (10.0-50.0); Mean Corpuscular Hemoglobin 29.3 pg (28.0-32.0); Mean Corpuscular Hgb Conc. 33.7 g/dL (32.0-36.0); Mean Corpuscular Volume 86.9 fL (80.0-100.0); Monocytes # (auto) 0.4 10 ^3/uL (0-1.3); Monocytes % (auto) 12.4 % (0.0-12.0); Neutrophils # (auto) 2.6 10 ^3/uL (1.6-8.6); Neutrophils % (auto) 75.1 % (37.0-80.0); Nucleated Red Blood Cells % 0.3 %; Platelet Count (auto) 258 10^3/uL (140-450); Red Blood Cells 4.31 10^6/uL (4.0-5.20); White Blood Cell 3.5 10^3/uL (4.4-10.8)
[2020-12-17 05:25] LABS: INR 1.37 (0.9-1.15); Partial Thromboplastin Time 45.6 sec (23.0-31.2)
[2020-12-17] MEDS: POTASSIUM CHL 20MEQ/100ML 100 ML IV SCH ×2 (08:30→10:30)
[2020-12-17] MEDS: VANCOMYCIN 1GM/250ML 250 ML IV SCH (09:00)
[2020-12-17] MEDS: PHENYLEPHRINE INJ 40 MG in SODIUM CHL 0.9% 246 ML IV SCH (09:05)
[2020-12-17] MEDS: ESOMEPRAZOLE 40 MG/5ml VIAL INJ IV SCH (10:13)
[2020-12-17] MEDS: CARVEDILOL 3.125 MG TAB GT SCH ×2 (10:13→22:00)
[2020-12-17] MEDS: ENOXAPARIN SOD 40 MG/0.4 ML SYRINGE SC SCH (10:13)
[2020-12-17 13:25] LABS: Calcium 7.1 mg/dL (8.5-10.1); Potassium 3.9 mmol/L (3.5-5.1)
[2020-12-17 13:27] LABS: BUN/Creatinine Ratio 26.5
[2020-12-17] MEDS: MEROPENEM 1GM IVPB 100 ML IV SCH ×2 (14:00→22:15)
[2020-12-17] MEDS: PROPOFOL 100 ML IV SCH (14:45)
[2020-12-17] MEDS: DOPamine 1600MCG/ML D5W 250 ML IV SCH (16:59)
[2020-12-17] MEDS ORDERED: IOHEXOL 300 MG/ML 100ML BOTTLE IJ ONE (17:02)
[2020-12-17] MEDS ORDERED: SODIUM CHLORIDE 0.9% 1,000 ML IV ONE (18:00)
[2020-12-17 18:55] LABS: BUN/Creatinine Ratio 29.1; Calcium 6.3 mg/dL (8.5-10.1); Potassium 4.5 mmol/L (3.5-5.1)
[2020-12-17] MEDS: NOREPINEPHRINE BITARTRATE 16 MG in SODIUM CHL 0.9% 234 ML IV SCH (23:45)
[2020-12-18] VITALS (97 sets, daily range): BP systolic 102–131; BP diastolic 55–84
[2020-12-18] MEDS: PHENYLEPHRINE INJ 40 MG in SODIUM CHL 0.9% 246 ML IV SCH ×2 (01:45→18:25)
[2020-12-18] MEDS: MIDAZOLAM DRIP 50 mg/50mL 50 ML IV SCH ×3 (03:34→10:54)
[2020-12-18 04:40] LABS: Hematocrit 31.4 % (36.0-46.0); Hemoglobin 10.5 g/dL (12.2-16.2); Mean Corpuscular Hemoglobin 29.3 pg (28.0-32.0); Mean Corpuscular Hgb Conc. 33.5 g/dL (32.0-36.0); Mean Corpuscular Volume 87.4 fL (80.0-100.0); Platelet Count (auto) 195 10^3/uL (140-450); Red Cell Distribution Width 14.7 % (11.8-14.3); White Blood Cell 13.8 10^3/uL (4.4-10.8)
[2020-12-18 04:55] LABS: Basophils % (manual) 0 (0.0-2.0); Blast Cells 0; Eosinophils % (manual) 0 (0-7); Potassium 3.6 mmol/L (3.5-5.1); Promyelocytes % 0; Reactive Lymphocytes 0
[2020-12-18 05:05] LABS: BUN/Creatinine Ratio 35.9; Calcium 6.2 mg/dL (8.5-10.1)
[2020-12-18] MEDS: MEROPENEM 1GM IVPB 100 ML IV SCH ×3 (05:31→21:45)
[2020-12-18] MEDS: InsuLIN REG 1unit/0.01ml Soln (100units/ml) SC SCH ×3 (06:00→18:00)
[2020-12-18] MEDS: ACCU-CHEK COMFORT CURVE STRIP VI SCH ×3 (06:00→18:37)
[2020-12-18 06:19] LABS: Band Neutrophils % (manual) 20; Lymphocytes % (manual) 12 (10.0-50.0); Metamyelocytes % 2; Monocytes % (manual) 2 (0-12); Myelocytes % 4
[2020-12-18] MEDS: ENOXAPARIN SOD 40 MG/0.4 ML SYRINGE SC SCH (09:38)
[2020-12-18] MEDS: VANCOMYCIN 1GM/250ML 250 ML IV SCH ×2 (09:38→18:37)
[2020-12-18] MEDS: ESOMEPRAZOLE 40 MG/5ml VIAL INJ IV SCH (09:39)
[2020-12-18] MEDS: CARVEDILOL 3.125 MG TAB GT SCH ×2 (09:39→21:46)
[2020-12-18] MEDS: SODIUM CHLORIDE 0.9% 1,000 ML IV SCH ×2 (13:37→23:32)
[2020-12-18] MEDS: PROPOFOL 100 ML IV SCH (14:45)
[2020-12-18] MEDS ORDERED: levETIRAcetam 500 MG/5ML INJ IV ONE (22:17)
[2020-12-18] MEDS: NOREPINEPHRINE BITARTRATE 16 MG in SODIUM CHL 0.9% 234 ML IV SCH (23:45)
[2020-12-19] VITALS (87 sets, daily range): BP systolic 122–151; BP diastolic 66–101
[2020-12-19] MEDS: ACCU-CHEK COMFORT CURVE STRIP VI SCH ×4 (01:16→18:05)
[2020-12-19 04:09] LABS: Hematocrit 30.9 % (36.0-46.0); Hemoglobin 10.4 g/dL (12.2-16.2); Mean Corpuscular Hemoglobin 29.5 pg (28.0-32.0); Mean Corpuscular Hgb Conc. 33.6 g/dL (32.0-36.0); Mean Corpuscular Volume 87.7 fL (80.0-100.0); Platelet Count (auto) 201 10^3/uL (140-450); Red Blood Cells 3.52 10^6/uL (4.0-5.20); Red Cell Distribution Width 15.5 % (11.8-14.3); White Blood Cell 15.3 10^3/uL (4.4-10.8)
[2020-12-19 04:11] LABS: Potassium 3.7 mmol/L (3.5-5.1)
[2020-12-19 04:14] LABS: Basophils % (manual) 0 (0.0-2.0); Blast Cells 0; Eosinophils % (manual) 0 (0-7); Promyelocytes % 0; Reactive Lymphocytes 0
[2020-12-19 04:34] LABS: Albumin 1.7 g/dL (3.4-5.0); BUN/Creatinine Ratio 34.9; Bilirubin, Total 0.4 mg/dL (0.2-1.0); Calcium 6.7 mg/dL (8.5-10.1); Total Protein 5.8 g/dL (6.4-8.2)
[2020-12-19 05:16] LABS: Band Neutrophils % (manual) 14; Metamyelocytes % 2
[2020-12-19 05:17] LABS: Lymphocytes % (manual) 10 (10.0-50.0); Monocytes % (manual) 7 (0-12); Myelocytes % 3
[2020-12-19] MEDS: VANCOMYCIN 1GM/250ML 250 ML IV SCH ×2 (05:39→17:10)
[2020-12-19] MEDS: MEROPENEM 1GM IVPB 100 ML IV SCH ×2 (05:45→13:59)
[2020-12-19] MEDS: InsuLIN REG 1unit/0.01ml Soln (100units/ml) SC SCH ×4 (05:46→18:08)
[2020-12-19] MEDS ORDERED: SODIUM CHLORIDE 0.9% 1,000 ML IV SCH (09:45)
[2020-12-19] MEDS ORDERED: TPN PER PHARMACY 0 ML IV SCH (09:45)
[2020-12-19] MEDS: CARVEDILOL 3.125 MG TAB GT SCH (09:53)
[2020-12-19] MEDS: ENOXAPARIN SOD 40 MG/0.4 ML SYRINGE SC SCH (09:54)
[2020-12-19] MEDS: ZONEGRAN 100 MG PO SCH (09:54)
[2020-12-19] MEDS: ESOMEPRAZOLE 40 MG/5ml VIAL INJ IV SCH (09:54)
[2020-12-19] MEDS: SODIUM CHLORIDE 0.9% 1,000 ML IV SCH ×3 (10:45→20:45)
[2020-12-19] MEDS: PHENYLEPHRINE INJ 40 MG in SODIUM CHL 0.9% 246 ML IV SCH (11:05)
[2020-12-19 11:11] LABS: Magnesium 2.8 mg/dL (1.6-2.6); Phosphorus 3.2 mg/dL (2.5-4.90)
[2020-12-19 11:13] LABS: Pre Albumin 6.3 mg/dL (20.0-40.0)
[2020-12-19] MEDS ORDERED: DEXTROSE (50%) 50ML SYRG IV SCH (12:00)
[2020-12-19] MEDS: PROPOFOL 100 ML IV SCH (14:45)
[2020-12-19] MEDS: MIDAZOLAM DRIP 50 mg/50mL 50 ML IV SCH (17:15)
[2020-12-19] MEDS: TPN PER PHARMACY IV NR ×6 (19:42)
[2020-12-19] MEDS: NOREPINEPHRINE BITARTRATE 16 MG in SODIUM CHL 0.9% 234 ML IV SCH (23:45)
[2020-12-20] VITALS (87 sets, daily range): BP systolic 95–164; BP diastolic 54–102
[2020-12-20] MEDS: MIDAZOLAM DRIP 50 mg/50mL 50 ML IV SCH ×3 (03:15→23:15)
[2020-12-20] MEDS: CARVEDILOL 3.125 MG TAB GT SCH ×2 (03:16→10:34)
[2020-12-20] MEDS: MEROPENEM 1GM IVPB 100 ML IV SCH ×4 (03:17→22:48)
[2020-12-20] MEDS: ACCU-CHEK COMFORT CURVE STRIP VI SCH ×4 (03:17→17:59)
[2020-12-20] MEDS: PHENYLEPHRINE INJ 40 MG in SODIUM CHL 0.9% 246 ML IV SCH ×2 (03:18→20:25)
[2020-12-20] MEDS: VANCOMYCIN 1GM/250ML 250 ML IV SCH ×2 (05:45→18:48)
[2020-12-20] MEDS: InsuLIN REG 1unit/0.01ml Soln (100units/ml) SC SCH ×4 (05:46→18:00)
[2020-12-20] MEDS: SODIUM CHLORIDE 0.9% 1,000 ML IV SCH ×2 (06:45→20:36)
[2020-12-20] MEDS: MORPHINE SULF INJ 2 MG/ML SYRINGE 1ML IV PRN (08:13)
[2020-12-20] MEDS: PROPOFOL 100 ML IV SCH (08:13)
[2020-12-20 08:58] LABS: Hemoglobin 9.8 g/dL (12.2-16.2); Mean Corpuscular Hemoglobin 28.9 pg (28.0-32.0); Mean Corpuscular Hgb Conc. 32.8 g/dL (32.0-36.0); Mean Corpuscular Volume 88.2 fL (80.0-100.0); Platelet Count (auto) 173 10^3/uL (140-450); Red Cell Distribution Width 15.7 % (11.8-14.3); White Blood Cell 15.7 10^3/uL (4.4-10.8)
[2020-12-20 09:01] LABS: Basophils % (manual) 0 (0.0-2.0); Blast Cells 0; Eosinophils % (manual) 0 (0-7); Promyelocytes % 0; Reactive Lymphocytes 0
[2020-12-20 09:12] LABS: INR 1.25 (0.9-1.15); Partial Thromboplastin Time 28.9 sec (23.0-31.2)
[2020-12-20 09:35] LABS: Potassium 3.2 mmol/L (3.5-5.1)
[2020-12-20] MEDS ORDERED: GASTROGRAFIN 120 ML SOL ONE (09:35)
[2020-12-20 09:47] LABS: Albumin 1.7 g/dL (3.4-5.0); Bilirubin, Total 0.4 mg/dL (0.2-1.0); Calcium 7.7 mg/dL (8.5-10.1); Magnesium 2.5 mg/dL (1.6-2.6); Total Protein 5.2 g/dL (6.4-8.2)
[2020-12-20] MEDS: ZONEGRAN 100 MG PO SCH (10:00)
[2020-12-20 10:13] LABS: Phosphorus 0.8 mg/dL (2.5-4.90)
[2020-12-20] MEDS ORDERED: POTASSIUM PHOSPHATE 44 MEQ in D5W 5% 250 ML IV ONE (10:30)
[2020-12-20] MEDS: ESOMEPRAZOLE 40 MG/5ml VIAL INJ IV SCH (10:35)
[2020-12-20] MEDS: ENOXAPARIN SOD 40 MG/0.4 ML SYRINGE SC SCH (10:35)
[2020-12-20 10:44] LABS: Band Neutrophils % (manual) 6; Lymphocytes % (manual) 6 (10.0-50.0); Metamyelocytes % 3; Monocytes % (manual) 9 (0-12); Myelocytes % 2
[2020-12-20] MEDS ORDERED: diphenhdrAMINE HCL 50 MG/1 ML VL IV PRN (11:00)
[2020-12-20] MEDS: ACETYLCYSTEINE 10 %(100MG/ML) SOL 4ML NEB SCH ×2 (11:00→18:40)
[2020-12-20] MEDS ORDERED: LISINOPRIL 10 MG TAB PO ONE (12:45)
[2020-12-20] MEDS: ALBUTEROL SULF 2.5 MG/0.5ML(0.5%) NEB SOLN NEB SCH ×2 (15:24→18:40)
[2020-12-20] MEDS: IPRATROPIUM BROM 0.5 MG/2.5ML INH SOL NEB SCH ×2 (15:25→18:40)
[2020-12-20] MEDS: ACETAMINOPHEN 650 mg PER 20.3 mL UD PO PRN (16:05)
[2020-12-20] MEDS: TPN PER PHARMACY IV NR ×6 (19:53)
[2020-12-20] MEDS ORDERED: TPN PER PHARMACY IV NR ×8 (20:00)
[2020-12-20] MEDS: NOREPINEPHRINE BITARTRATE 16 MG in SODIUM CHL 0.9% 234 ML IV SCH (23:45)
[2020-12-21] VITALS (97 sets, daily range): BP systolic 86–132; BP diastolic 41–79
[2020-12-21] MEDS ORDERED: levETIRAcetam 500 MG/5ML INJ IV ONE (00:19)
[2020-12-21] MEDS: CARVEDILOL 3.125 MG TAB PO SCH ×3 (00:29→22:00)
[2020-12-21] MEDS: ACCU-CHEK COMFORT CURVE STRIP VI SCH ×4 (00:30→17:31)
[2020-12-21] MEDS: ALBUTEROL SULF 2.5 MG/0.5ML(0.5%) NEB SOLN NEB SCH ×4 (00:31→18:33)
[2020-12-21] MEDS: ACETYLCYSTEINE 10 %(100MG/ML) SOL 4ML NEB SCH ×4 (00:31→18:33)
[2020-12-21] MEDS: InsuLIN REG 1unit/0.01ml Soln (100units/ml) SC SCH ×4 (00:31→17:31)
[2020-12-21] MEDS: IPRATROPIUM BROM 0.5 MG/2.5ML INH SOL NEB SCH ×4 (00:31→18:33)
[2020-12-21 04:37] LABS: Albumin 1.4 g/dL (3.4-5.0); Calcium 7.3 mg/dL (8.5-10.1); Magnesium 2.2 mg/dL (1.6-2.6); Potassium 3.2 mmol/L (3.5-5.1)
[2020-12-21 04:42] LABS: BUN/Creatinine Ratio 32.7; Bilirubin, Total 0.4 mg/dL (0.2-1.0); Phosphorus 1.8 mg/dL (2.5-4.90); Total Protein 4.7 g/dL (6.4-8.2)
[2020-12-21] MEDS: MEROPENEM 1GM IVPB 100 ML IV SCH ×3 (06:11→22:00)
[2020-12-21] MEDS: VANCOMYCIN 1GM/250ML 250 ML IV SCH ×2 (06:12→19:00)
[2020-12-21] MEDS: MIDAZOLAM DRIP 50 mg/50mL 50 ML IV SCH ×2 (08:00→09:02)
[2020-12-21] MEDS: NOREPINEPHRINE BITARTRATE 16 MG in SODIUM CHL 0.9% 234 ML IV SCH (08:00)
[2020-12-21 08:51] LABS: Hematocrit 29.7 % (36.0-46.0); Hemoglobin 9.8 g/dL (12.2-16.2); Mean Corpuscular Hemoglobin 29.2 pg (28.0-32.0); Mean Corpuscular Hgb Conc. 32.8 g/dL (32.0-36.0); Platelet Count (auto) 208 10^3/uL (140-450); Red Blood Cells 3.34 10^6/uL (4.0-5.20); Red Cell Distribution Width 15.5 % (11.8-14.3)
[2020-12-21 08:52] LABS: Basophils % (manual) 0 (0.0-2.0); Blast Cells 0; Eosinophils % (manual) 0 (0-7); Promyelocytes % 0; Reactive Lymphocytes 0
[2020-12-21] MEDS ORDERED: MIDAZOLAM HCL 5 MG/ML-1ML VIAL ONE (08:55)
[2020-12-21] MEDS ORDERED: fentaNYL CITRATE 100 MCG/2 ML VL ONE (08:55)
[2020-12-21] MEDS ORDERED: POTASSIUM PHOSPHATE 44 MEQ in D5W 5% 250 ML IV ONE (09:15)
[2020-12-21 09:18] LABS: Band Neutrophils % (manual) 10; Lymphocytes % (manual) 12 (10.0-50.0); Metamyelocytes % 3; Monocytes % (manual) 3 (0-12); Myelocytes % 2
[2020-12-21] MEDS: ESOMEPRAZOLE 40 MG/5ml VIAL INJ IV SCH (09:40)
[2020-12-21] MEDS: ZONEGRAN 100 MG PO SCH (09:41)
[2020-12-21] MEDS: LISINOPRIL 10 MG TAB PO SCH (09:43)
[2020-12-21] MEDS: ENOXAPARIN SOD 40 MG/0.4 ML SYRINGE SC SCH (09:43)
[2020-12-21] MEDS ORDERED: GOLYTELY 4L KIT PO ONE (11:15)
[2020-12-21] MEDS: SODIUM CHLORIDE 0.9% 1,000 ML IV SCH (12:28)
[2020-12-21] MEDS: PHENYLEPHRINE INJ 40 MG in SODIUM CHL 0.9% 246 ML IV SCH (13:05)
[2020-12-21] MEDS: PROPOFOL 100 ML IV SCH ×2 (14:07→19:00)
[2020-12-21] MEDS: MORPHINE SULF INJ 2 MG/ML SYRINGE 1ML IV PRN (19:44)
[2020-12-21] MEDS ORDERED: TPN PER PHARMACY IV NR ×8 (20:00)
[2020-12-21] MEDS ORDERED: ENOXAPARIN SOD 100 MG/1 ML SYRINGE SC SCH (22:00)
[2020-12-21] MEDS: ACETAMINOPHEN 650 mg PER 20.3 mL UD PO PRN (23:07)
[2020-12-22] VITALS (105 sets, daily range): BP systolic 96–144; BP diastolic 45–84
[2020-12-22] MEDS: ACCU-CHEK COMFORT CURVE STRIP VI SCH ×4 (00:12→18:00)
[2020-12-22] MEDS: IPRATROPIUM BROM 0.5 MG/2.5ML INH SOL NEB SCH ×4 (00:15→18:36)
[2020-12-22] MEDS: ALBUTEROL SULF 2.5 MG/0.5ML(0.5%) NEB SOLN NEB SCH ×4 (00:15→18:35)
[2020-12-22] MEDS: ACETYLCYSTEINE 10 %(100MG/ML) SOL 4ML NEB SCH ×4 (00:15→18:35)
[2020-12-22] MEDS: InsuLIN REG 1unit/0.01ml Soln (100units/ml) SC SCH ×4 (00:19→18:00)
[2020-12-22 04:07] LABS: Albumin 1.3 g/dL (3.4-5.0); Calcium 7.3 mg/dL (8.5-10.1); Magnesium 2.3 mg/dL (1.6-2.6); Potassium 3.8 mmol/L (3.5-5.1)
[2020-12-22 04:10] LABS: BUN/Creatinine Ratio 36.4; Bilirubin, Total 0.6 mg/dL (0.2-1.0); Phosphorus 2.4 mg/dL (2.5-4.90); Total Protein 4.8 g/dL (6.4-8.2)
[2020-12-22] MEDS: SODIUM CHLORIDE 0.9% 1,000 ML IV SCH ×2 (04:49→08:00)
[2020-12-22] MEDS: PROPOFOL 100 ML IV SCH ×7 (05:00→20:00)
[2020-12-22] MEDS: VANCOMYCIN 1GM/250ML 250 ML IV SCH ×2 (05:30→20:00)
[2020-12-22] MEDS: MEROPENEM 1GM IVPB 100 ML IV SCH ×3 (06:26→22:00)
[2020-12-22] MEDS: PHENYLEPHRINE INJ 40 MG in SODIUM CHL 0.9% 246 ML IV SCH (08:00)
[2020-12-22] MEDS: MIDAZOLAM DRIP 50 mg/50mL 50 ML IV SCH ×2 (08:00→15:15)
[2020-12-22] MEDS ORDERED: MIDAZOLAM HCL 5 MG/ML-1ML VIAL ONE (08:24)
[2020-12-22] MEDS ORDERED: fentaNYL CITRATE 100 MCG/2 ML VL ONE (08:25)
[2020-12-22] MEDS ORDERED: GOLYTELY 4L KIT PO ONE (09:30)
[2020-12-22 09:39] LABS: INR 1.09 (0.9-1.15)
[2020-12-22] MEDS: ZONEGRAN 100 MG PO SCH (09:59)
[2020-12-22] MEDS: ESOMEPRAZOLE 40 MG/5ml VIAL INJ IV SCH (09:59)
[2020-12-22] MEDS: CARVEDILOL 3.125 MG TAB PO SCH (10:04)
[2020-12-22] MEDS: LISINOPRIL 10 MG TAB PO SCH (10:04)
[2020-12-22 10:37] LABS: Hematocrit 27.4 % (36.0-46.0); Mean Corpuscular Hemoglobin 29.1 pg (28.0-32.0); Mean Corpuscular Hgb Conc. 32.9 g/dL (32.0-36.0); Mean Corpuscular Volume 88.4 fL (80.0-100.0); Platelet Count (auto) 258 10^3/uL (140-450); Red Cell Distribution Width 15.4 % (11.8-14.3); White Blood Cell 20.5 10^3/uL (4.4-10.8)
[2020-12-22] MEDS ORDERED: SODIUM PHOSPHATES 20 MEQ in SODIUM CHL 0.9% 100 ML IV ONE (11:00)
[2020-12-22 11:21] LABS: Basophils % (manual) 0 (0.0-2.0); Blast Cells 0; Metamyelocytes % 0; Myelocytes % 0; Promyelocytes % 0; Reactive Lymphocytes 0
[2020-12-22 12:23] LABS: Band Neutrophils % (manual) 11; Eosinophils % (manual) 5 (0-7); Lymphocytes % (manual) 38 (10.0-50.0); Monocytes % (manual) 10 (0-12)
[2020-12-22] MEDS ORDERED: TPN PER PHARMACY IV NR ×8 (20:00)
[2020-12-22] MEDS: MORPHINE SULF INJ 2 MG/ML SYRINGE 1ML IV PRN (21:05)
[2020-12-22] MEDS: CARVEDILOL 12.5 MG TAB PO SCH (22:00)
[2020-12-23] VITALS (106 sets, daily range): BP systolic 81–211; BP diastolic 43–92
[2020-12-23] MEDS: ACETAMINOPHEN 650 mg PER 20.3 mL UD PO PRN (00:58)
[2020-12-23] MEDS: ACETYLCYSTEINE 10 %(100MG/ML) SOL 4ML NEB SCH ×4 (01:07→18:14)
[2020-12-23] MEDS: IPRATROPIUM BROM 0.5 MG/2.5ML INH SOL NEB SCH ×4 (01:07→18:14)
[2020-12-23] MEDS: ALBUTEROL SULF 2.5 MG/0.5ML(0.5%) NEB SOLN NEB SCH ×4 (01:08→18:14)
[2020-12-23] MEDS: SODIUM CHLORIDE 0.9% 1,000 ML IV SCH ×2 (04:00→19:55)
[2020-12-23 04:18] LABS: Hematocrit 25.6 % (36.0-46.0); Hemoglobin 8.5 g/dL (12.2-16.2); Mean Corpuscular Hemoglobin 29.2 pg (28.0-32.0); Mean Corpuscular Hgb Conc. 33.2 g/dL (32.0-36.0); Platelet Count (auto) 309 10^3/uL (140-450); Red Cell Distribution Width 15.6 % (11.8-14.3)
[2020-12-23 04:35] LABS: Albumin 1.3 g/dL (3.4-5.0); Calcium 7.4 mg/dL (8.5-10.1); Magnesium 2.1 mg/dL (1.6-2.6); Potassium 3.8 mmol/L (3.5-5.1)
[2020-12-23 04:36] LABS: Basophils % (manual) 0 (0.0-2.0); Blast Cells 0; Promyelocytes % 0; Reactive Lymphocytes 0
[2020-12-23 04:38] LABS: BUN/Creatinine Ratio 31.7; Bilirubin, Total 0.4 mg/dL (0.2-1.0); Phosphorus 2.4 mg/dL (2.5-4.90); Total Protein 5.1 g/dL (6.4-8.2)
[2020-12-23] MEDS: MORPHINE SULF INJ 2 MG/ML SYRINGE 1ML IV PRN (05:01)
[2020-12-23 05:13] LABS: Eosinophils % (manual) 1 (0-7); Metamyelocytes % 2; Myelocytes % 1
[2020-12-23 05:15] LABS: Band Neutrophils % (manual) 11; Lymphocytes % (manual) 13 (10.0-50.0); Monocytes % (manual) 5 (0-12)
[2020-12-23] MEDS: MEROPENEM 1GM IVPB 100 ML IV SCH ×2 (06:00→14:48)
[2020-12-23] MEDS: InsuLIN REG 1unit/0.01ml Soln (100units/ml) SC SCH ×4 (06:00→18:00)
[2020-12-23] MEDS: VANCOMYCIN 1GM/250ML 250 ML IV SCH (06:00)
[2020-12-23] MEDS: ACCU-CHEK COMFORT CURVE STRIP VI SCH ×4 (06:00→18:03)
[2020-12-23] MEDS: MIDAZOLAM DRIP 50 mg/50mL 50 ML IV SCH ×3 (08:00→21:15)
[2020-12-23] MEDS: NOREPINEPHRINE BITARTRATE 16 MG in SODIUM CHL 0.9% 234 ML IV SCH ×2 (08:00→23:45)
[2020-12-23] MEDS ORDERED: SODIUM PHOSPHATES 20 MEQ in SODIUM CHL 0.9% 100 ML IV ONE (08:30)
[2020-12-23] MEDS ORDERED: diphenhdrAMINE HCL 50 MG/1 ML VL ONE (09:13)
[2020-12-23] MEDS ORDERED: fentaNYL CITRATE 100 MCG/2 ML VL ONE (09:13)
[2020-12-23] MEDS ORDERED: MIDAZOLAM HCL 5 MG/ML-1ML VIAL ONE (09:13)
[2020-12-23] MEDS: ZONEGRAN 100 MG PO SCH (09:34)
[2020-12-23] MEDS: ESOMEPRAZOLE 40 MG/5ml VIAL INJ IV SCH (09:34)
[2020-12-23] MEDS: CARVEDILOL 12.5 MG TAB PO SCH ×2 (09:35→21:37)
[2020-12-23] MEDS: LISINOPRIL 10 MG TAB PO SCH (09:35)
[2020-12-23] MEDS: fentaNYL Drip 2500mCg/250mlNS 250 ML IV SCH (09:48)
[2020-12-23] MEDS: PROPOFOL 100 ML IV SCH ×4 (09:49→19:53)
[2020-12-23] MEDS: PHENYLEPHRINE INJ 40 MG in SODIUM CHL 0.9% 246 ML IV SCH (15:03)
[2020-12-23] MEDS: VANCOMYCIN HCL 500MG/5ML ORAL SOL GT SCH ×3 (15:08→21:36)
[2020-12-23] MEDS ORDERED: TPN PER PHARMACY IV NR ×8 (20:00)
[2020-12-24] VITALS (70 sets, daily range): BP systolic 80–214; BP diastolic 6–165
[2020-12-24] MEDS: IPRATROPIUM BROM 0.5 MG/2.5ML INH SOL NEB SCH ×5 (00:17→22:10)
[2020-12-24] MEDS: ALBUTEROL SULF 2.5 MG/0.5ML(0.5%) NEB SOLN NEB SCH ×5 (00:18→22:10)
[2020-12-24] MEDS: ACETYLCYSTEINE 10 %(100MG/ML) SOL 4ML NEB SCH ×4 (00:18→22:04)
[2020-12-24] MEDS: PROPOFOL 100 ML IV SCH (01:00)
[2020-12-24] MEDS ORDERED: NOREPINEPHRINE 8 MG/250ML KIT 250 ML IV ONE (01:29)
[2020-12-24 04:02] LABS: Hematocrit 23.9 % (36.0-46.0); Hemoglobin 7.9 g/dL (12.2-16.2); Mean Corpuscular Hemoglobin 29.3 pg (28.0-32.0); Mean Corpuscular Volume 88.4 fL (80.0-100.0); Platelet Count (auto) 344 10^3/uL (140-450)
[2020-12-24 04:05] LABS: Mean Corpuscular Hgb Conc. 33.1 g/dL (32.0-36.0); Red Cell Distribution Width 15.3 % (11.8-14.3); White Blood Cell 15.7 10^3/uL (4.4-10.8)
[2020-12-24 04:09] LABS: Basophils % (manual) 0 (0.0-2.0); Blast Cells 0; Eosinophils % (manual) 0 (0-7); Metamyelocytes % 0; Myelocytes % 0; Promyelocytes % 0; Reactive Lymphocytes 0
[2020-12-24 04:19] LABS: Potassium 4.2 mmol/L (3.5-5.1)
[2020-12-24 04:25] LABS: Albumin 1.2 g/dL (3.4-5.0); Bilirubin, Total 0.4 mg/dL (0.2-1.0); Calcium 7.2 mg/dL (8.5-10.1); Magnesium 2.1 mg/dL (1.6-2.6); Phosphorus 3.3 mg/dL (2.5-4.90); Total Protein 4.9 g/dL (6.4-8.2)
[2020-12-24 05:34] LABS: Band Neutrophils % (manual) 13; Lymphocytes % (manual) 16 (10.0-50.0); Monocytes % (manual) 8 (0-12)
[2020-12-24] MEDS: InsuLIN REG 1unit/0.01ml Soln (100units/ml) SC SCH ×4 (06:00→17:40)
[2020-12-24] MEDS: VANCOMYCIN HCL 500MG/5ML ORAL SOL GT SCH ×4 (06:00→22:00)
[2020-12-24] MEDS: ACCU-CHEK COMFORT CURVE STRIP VI SCH ×4 (06:00→17:38)
[2020-12-24] MEDS: MIDAZOLAM DRIP 50 mg/50mL 50 ML IV SCH (07:15)
[2020-12-24] MEDS: PHENYLEPHRINE INJ 40 MG in SODIUM CHL 0.9% 246 ML IV SCH (07:45)
[2020-12-24] MEDS: fentaNYL Drip 2500mCg/250mlNS 250 ML IV SCH (09:15)
[2020-12-24] MEDS: ZONEGRAN 100 MG PO SCH (10:00)
[2020-12-24] MEDS: LISINOPRIL 10 MG TAB PO SCH (10:00)
[2020-12-24] MEDS: CARVEDILOL 12.5 MG TAB PO SCH ×2 (10:37→22:00)
[2020-12-24] MEDS: ESOMEPRAZOLE 40 MG/5ml VIAL INJ IV SCH (10:37)
[2020-12-24] MEDS ORDERED: HYDROcodone-ACET 5/325MG TAB PO PRN (11:15)
[2020-12-24] MEDS: MORPHINE SULF INJ 2 MG/ML SYRINGE 1ML IV PRN ×2 (11:46→15:58)
[2020-12-24] MEDS: LORazepam 2MG/ML-1ML VIAL IV PRN ×2 (13:21→20:22)
[2020-12-24] MEDS ORDERED: FUROSEMIDE 40 MG/4 ML VIAL IV ONE (15:45)
[2020-12-24] MEDS ORDERED: FUROSEMIDE 40 MG/4 ML VIAL ONE (15:48)
[2020-12-24] MEDS ORDERED: TPN PER PHARMACY IV NR ×11 (20:00)
[2020-12-24] MEDS: APIXABAN 5 MG TAB PO SCH (22:00)
[2020-12-25] VITALS (72 sets, daily range): BP systolic 123–178; BP diastolic 60–101
[2020-12-25] MEDS: ALBUTEROL SULF 2.5 MG/0.5ML(0.5%) NEB SOLN NEB SCH ×6 (02:00→22:20)
[2020-12-25] MEDS: IPRATROPIUM BROM 0.5 MG/2.5ML INH SOL NEB SCH ×6 (02:00→22:20)
[2020-12-25] MEDS: LORazepam 2MG/ML-1ML VIAL IV PRN ×4 (02:00→23:06)
[2020-12-25 04:37] LABS: Hematocrit 23.8 % (36.0-46.0); Mean Corpuscular Hemoglobin 29.6 pg (28.0-32.0); Mean Corpuscular Hgb Conc. 33.5 g/dL (32.0-36.0); Mean Corpuscular Volume 88.4 fL (80.0-100.0); Platelet Count (auto) 400 10^3/uL (140-450); Red Blood Cells 2.69 10^6/uL (4.0-5.20); Red Cell Distribution Width 14.6 % (11.8-14.3); White Blood Cell 11.2 10^3/uL (4.4-10.8)
[2020-12-25 04:47] LABS: Basophils % (manual) 0 (0.0-2.0); Blast Cells 0; Eosinophils % (manual) 0 (0-7); Promyelocytes % 0; Reactive Lymphocytes 0
[2020-12-25 04:50] LABS: Potassium 4.1 mmol/L (3.5-5.1)
[2020-12-25 04:57] LABS: Albumin 1.3 g/dL (3.4-5.0); BUN/Creatinine Ratio 34.9; Bilirubin, Total 0.4 mg/dL (0.2-1.0); Calcium 7.7 mg/dL (8.5-10.1); Magnesium 2.2 mg/dL (1.6-2.6); Phosphorus 3.2 mg/dL (2.5-4.90); Total Protein 5.5 g/dL (6.4-8.2)
[2020-12-25] MEDS: MORPHINE SULF INJ 2 MG/ML SYRINGE 1ML IV PRN ×6 (05:00→22:30)
[2020-12-25] MEDS: VANCOMYCIN HCL 500MG/5ML ORAL SOL GT SCH ×4 (05:30→21:47)
[2020-12-25] MEDS: ACCU-CHEK COMFORT CURVE STRIP VI SCH ×5 (05:31→23:45)
[2020-12-25] MEDS: InsuLIN REG 1unit/0.01ml Soln (100units/ml) SC SCH ×5 (05:32→23:49)
[2020-12-25 06:01] LABS: Band Neutrophils % (manual) 12; Lymphocytes % (manual) 26 (10.0-50.0); Metamyelocytes % 3; Monocytes % (manual) 2 (0-12); Myelocytes % 3
[2020-12-25] MEDS: ZONEGRAN 100 MG PO SCH (09:15)
[2020-12-25] MEDS: ESOMEPRAZOLE 40 MG/5ml VIAL INJ IV SCH (10:00)
[2020-12-25] MEDS ORDERED: FUROSEMIDE 20 MG/2 ML VIAL IV ONE (10:00)
[2020-12-25] MEDS ORDERED: ALPRAZolam 0.25 MG TAB PO ONE (10:00)
[2020-12-25] MEDS ORDERED: FUROSEMIDE 20 MG/2 ML VIAL ONE (10:02)
[2020-12-25] MEDS: CARVEDILOL 12.5 MG TAB PO SCH ×2 (10:12→21:48)
[2020-12-25] MEDS: APIXABAN 5 MG TAB PO SCH ×2 (10:12→21:49)
[2020-12-25] MEDS: LISINOPRIL 10 MG TAB PO SCH (10:13)
[2020-12-25] MEDS ORDERED: levoFLOXacin 500MG 100 ML IV ONE (12:45)
[2020-12-25] MEDS: ALPRAZolam 0.25 MG TAB PO SCH ×3 (14:00→21:48)
[2020-12-25] MEDS: ACETYLCYSTEINE 10 %(100MG/ML) SOL 4ML NEB SCH ×3 (16:07→22:20)
[2020-12-25] MEDS: BUDESONIDE (INHALATION) 0.5 MG/2 ML NEB NEB SCH ×2 (16:10→18:34)
[2020-12-25] MEDS ORDERED: TPN PER PHARMACY IV NR ×10 (20:00)
[2020-12-26] VITALS (49 sets, daily range): BP systolic 105–160; BP diastolic 35–94
[2020-12-26] MEDS: ACETAMINOPHEN 650 mg PER 20.3 mL UD PO PRN (01:06)
[2020-12-26] MEDS: IPRATROPIUM BROM 0.5 MG/2.5ML INH SOL NEB SCH ×6 (02:13→22:17)
[2020-12-26] MEDS: ALBUTEROL SULF 2.5 MG/0.5ML(0.5%) NEB SOLN NEB SCH ×6 (02:13→22:17)
[2020-12-26] MEDS: MORPHINE SULF INJ 2 MG/ML SYRINGE 1ML IV PRN ×4 (02:44→20:48)
[2020-12-26 04:25] LABS: Hemoglobin 7.5 g/dL (12.2-16.2); Red Cell Distribution Width 14.6 % (11.8-14.3)
[2020-12-26 04:27] LABS: Hematocrit 21.6 % (36.0-46.0); Mean Corpuscular Hemoglobin 30.5 pg (28.0-32.0); Mean Corpuscular Hgb Conc. 34.6 g/dL (32.0-36.0); Platelet Count (auto) 397 10^3/uL (140-450); Red Blood Cells 2.46 10^6/uL (4.0-5.20); White Blood Cell 10.2 10^3/uL (4.4-10.8)
[2020-12-26 04:45] LABS: Basophils % (manual) 0 (0.0-2.0); Blast Cells 0; Promyelocytes % 0; Reactive Lymphocytes 0
[2020-12-26 04:47] LABS: Albumin 1.3 g/dL (3.4-5.0); Calcium 7.3 mg/dL (8.5-10.1)
[2020-12-26 04:50] LABS: BUN/Creatinine Ratio 37.2
[2020-12-26] MEDS: LORazepam 2MG/ML-1ML VIAL IV PRN ×2 (05:15→22:40)
[2020-12-26 05:26] LABS: Phosphorus 3.2 mg/dL (2.5-4.90)
[2020-12-26] MEDS: ACETYLCYSTEINE 10 %(100MG/ML) SOL 4ML NEB SCH ×3 (05:41→22:17)
[2020-12-26 05:45] LABS: Bilirubin, Total 0.9 mg/dL (0.2-1.0); Total Protein 5.7 g/dL (6.4-8.2)
[2020-12-26] MEDS: ALPRAZolam 0.25 MG TAB PO SCH ×2 (05:45→14:37)
[2020-12-26] MEDS: ACCU-CHEK COMFORT CURVE STRIP VI SCH ×2 (05:46→11:48)
[2020-12-26] MEDS: InsuLIN REG 1unit/0.01ml Soln (100units/ml) SC SCH ×2 (05:46→11:52)
[2020-12-26] MEDS: VANCOMYCIN HCL 500MG/5ML ORAL SOL GT SCH (05:47)
[2020-12-26 06:03] LABS: Band Neutrophils % (manual) 44; Eosinophils % (manual) 1 (0-7); Lymphocytes % (manual) 26 (10.0-50.0); Metamyelocytes % 1; Monocytes % (manual) 9 (0-12); Myelocytes % 1
[2020-12-26] MEDS ORDERED: VANCOMYCIN PER PHARMACY 0 MG IV SCH (09:30)
[2020-12-26] MEDS ORDERED: VANCOMYCIN 1GM/250ML 250 ML IV ONE (09:45)
[2020-12-26] MEDS: CARVEDILOL 12.5 MG TAB PO SCH (10:00)
[2020-12-26] MEDS: LISINOPRIL 10 MG TAB PO SCH ×2 (10:00→12:30)
[2020-12-26] MEDS ORDERED: levoFLOXacin 500MG 100 ML IV SCH (10:00)
[2020-12-26] MEDS: ZONEGRAN 100 MG PO SCH (10:00)
[2020-12-26] MEDS: BUDESONIDE (INHALATION) 0.5 MG/2 ML NEB NEB SCH ×2 (10:00→22:17)
[2020-12-26] MEDS: ESOMEPRAZOLE 40 MG/5ml VIAL INJ IV SCH (10:07)
[2020-12-26] MEDS: APIXABAN 5 MG TAB PO SCH (10:51)
[2020-12-26] MEDS ORDERED: ACETAMINOPHEN 650 mg PER 20.3 mL UD PO ONE (12:30)
[2020-12-26] MEDS ORDERED: MEROPENEM 1GM IVPB 100 ML IV ONE (18:45)
[2020-12-26] MEDS ORDERED: ENOXAPARIN SOD 40 MG/0.4 ML SYRINGE SC ONE (19:00)
[2020-12-26] MEDS ORDERED: TPN PER PHARMACY IV NR ×10 (20:00)
[2020-12-27] VITALS (33 sets, daily range): BP systolic 108–145; BP diastolic 63–98
[2020-12-27] MEDS ORDERED: VANCOMYCIN 1GM/250ML 250 ML IV SCH
[2020-12-27] MEDS: MORPHINE SULF INJ 2 MG/ML SYRINGE 1ML IV PRN ×5 (01:01→22:25)
[2020-12-27] MEDS: MEROPENEM 1GM IVPB 100 ML IV SCH ×3 (01:42→18:00)
[2020-12-27] MEDS: ALBUTEROL SULF 2.5 MG/0.5ML(0.5%) NEB SOLN NEB SCH ×3 (02:18→10:32)
[2020-12-27] MEDS: IPRATROPIUM BROM 0.5 MG/2.5ML INH SOL NEB SCH ×6 (02:18→22:36)
[2020-12-27 04:07] LABS: Hematocrit 22.7 % (36.0-46.0); Mean Corpuscular Hemoglobin 29.5 pg (28.0-32.0)
[2020-12-27 04:10] LABS: Hemoglobin 7.5 g/dL (12.2-16.2); Mean Corpuscular Hgb Conc. 33.2 g/dL (32.0-36.0); Mean Corpuscular Volume 88.9 fL (80.0-100.0); Platelet Count (auto) 476 10^3/uL (140-450); Red Blood Cells 2.55 10^6/uL (4.0-5.20); Red Cell Distribution Width 14.5 % (11.8-14.3); White Blood Cell 11.2 10^3/uL (4.4-10.8)
[2020-12-27 04:23] LABS: Potassium 3.9 mmol/L (3.5-5.1)
[2020-12-27 04:24] LABS: Albumin 1.3 g/dL (3.4-5.0)
[2020-12-27 04:27] LABS: BUN/Creatinine Ratio 27.7; Bilirubin, Total 1.1 mg/dL (0.2-1.0); Phosphorus 3.6 mg/dL (2.5-4.90); Total Protein 5.5 g/dL (6.4-8.2)
[2020-12-27 04:36] LABS: Basophils % (manual) 0 (0.0-2.0); Blast Cells 0; Promyelocytes % 0; Reactive Lymphocytes 0
[2020-12-27 05:13] LABS: Band Neutrophils % (manual) 26; Eosinophils % (manual) 1 (0-7); Lymphocytes % (manual) 28 (10.0-50.0); Metamyelocytes % 1; Monocytes % (manual) 10 (0-12); Myelocytes % 1
[2020-12-27] MEDS: BUDESONIDE (INHALATION) 0.5 MG/2 ML NEB NEB SCH ×2 (06:46→18:54)
[2020-12-27] MEDS: ACETYLCYSTEINE 10 %(100MG/ML) SOL 4ML NEB SCH ×3 (06:46→22:36)
[2020-12-27] MEDS ORDERED: VANCOMYCIN HCL 125MG/5ML ORAL SOL PO ONE (08:45)
[2020-12-27 09:25] LABS: Free T3 2.35 pg/mL (2.3-4.2)
[2020-12-27] MEDS ORDERED: FUROSEMIDE 40 MG/4 ML VIAL IV ONE (09:30)
[2020-12-27] MEDS ORDERED: ALBUMIN 25% 100 ML IV ONE (09:30)
[2020-12-27 09:31] LABS: Free T4 (Free Thyroxine) 1.12 ng/dL (0.89-1.76)
[2020-12-27 09:44] LABS: INR 1.28 (0.9-1.15)
[2020-12-27] MEDS: CARVEDILOL 3.125 MG TAB PO SCH ×2 (10:00→21:56)
[2020-12-27] MEDS: LISINOPRIL 5 MG TAB PO SCH (10:00)
[2020-12-27] MEDS: ESOMEPRAZOLE 40 MG/5ml VIAL INJ IV SCH (10:20)
[2020-12-27] MEDS ORDERED: fentaNYL 25MCG/HR 25 MCG/HR PAT TD SCH (10:45)
[2020-12-27 11:32] LABS: Hemoglobin 7.7 g/dL (12.2-16.2); Red Blood Cells 2.56 10^6/uL (4.0-5.20); White Blood Cell 11.5 10^3/uL (4.4-10.8)
[2020-12-27 11:33] LABS: Hematocrit 23.2 % (36.0-46.0); Mean Corpuscular Volume 90.7 fL (80.0-100.0); Platelet Count (auto) 483 10^3/uL (140-450); Red Cell Distribution Width 14.8 % (11.8-14.3)
[2020-12-27 11:34] LABS: Basophils % (manual) 0 (0.0-2.0); Blast Cells 0; Myelocytes % 0; Promyelocytes % 0; Reactive Lymphocytes 0
[2020-12-27 11:54] LABS: Band Neutrophils % (manual) 27; Eosinophils % (manual) 1 (0-7); Lymphocytes % (manual) 26 (10.0-50.0); Metamyelocytes % 2; Monocytes % (manual) 10 (0-12)
[2020-12-27] MEDS ORDERED: VANCOMYCIN HCL 125MG/5ML ORAL SOL GT SCH (12:00)
[2020-12-27] MEDS ORDERED: diphenhdrAMINE HCL 50 MG/1 ML VL IV PRN (12:30)
[2020-12-27] MEDS ORDERED: GASTROGRAFIN 120 ML SOL ONE ×2 (13:16→13:53)
[2020-12-27] MEDS: LORazepam 2MG/ML-1ML VIAL IV PRN ×2 (13:33→22:25)
[2020-12-27 13:43] LABS: % Iron Saturation 17.1 % (15-50)
[2020-12-27] MEDS: LEVALBUTEROL HCL 1.25 MG/3 ML NEB NEB SCH ×3 (13:55→22:36)
[2020-12-27] MEDS ORDERED: LIDOCAINE 1% (LOCAL ANESTH.) PF 5ml SDV ID ONE (15:45)
[2020-12-27] MEDS ORDERED: SODIUM CHLORIDE IV SCH ×10 (20:00)
[2020-12-27] MEDS ORDERED: [UNRECOGNIZED DRUG - OTHER] IV SCH ×10 (20:00)
[2020-12-27] MEDS ORDERED: POTASSIUM ACETATE IV SCH ×10 (20:00)
[2020-12-27] MEDS ORDERED: SODIUM ACETATE IV SCH ×10 (20:00)
[2020-12-27] MEDS: SODIUM ACETATE IV SCH ×20 (21:00→23:40)
[2020-12-27] MEDS: SODIUM CHLORIDE IV SCH ×20 (21:00→23:40)
[2020-12-27] MEDS: [UNRECOGNIZED DRUG - OTHER] IV SCH ×20 (21:00→23:40)
[2020-12-27] MEDS ORDERED: ACETAMINOPHEN 650 mg PER 20.3 mL UD GT ONE (21:00)
[2020-12-27] MEDS: POTASSIUM ACETATE IV SCH ×20 (21:00→23:40)
[2020-12-27] MEDS: SODIUM CHLOR 0.9% PF (SALINE LOCK) 10ML VIAL/SYR IV SCH (22:00)
[2020-12-28] VITALS (22 sets, daily range): BP systolic 100–128; BP diastolic 54–88
[2020-12-28] MEDS: MEROPENEM 1GM IVPB 100 ML IV SCH (01:30)
[2020-12-28] MEDS: LEVALBUTEROL HCL 1.25 MG/3 ML NEB NEB SCH ×6 (02:33→22:22)
[2020-12-28] MEDS: IPRATROPIUM BROM 0.5 MG/2.5ML INH SOL NEB SCH ×6 (02:34→22:23)
[2020-12-28 05:27] LABS: Hematocrit 26.6 % (36.0-46.0); Mean Corpuscular Hemoglobin 29.6 pg (28.0-32.0); White Blood Cell 12.5 10^3/uL (4.4-10.8)
[2020-12-28 05:30] LABS: Mean Corpuscular Hgb Conc. 33.7 g/dL (32.0-36.0); Mean Corpuscular Volume 87.9 fL (80.0-100.0); Platelet Count (auto) 455 10^3/uL (140-450); Red Blood Cells 3.03 10^6/uL (4.0-5.20); Red Cell Distribution Width 14.4 % (11.8-14.3)
[2020-12-28 05:40] LABS: Basophils % (manual) 0 (0.0-2.0); Blast Cells 0; Promyelocytes % 0; Reactive Lymphocytes 0
[2020-12-28 05:46] LABS: Albumin 1.8 g/dL (3.4-5.0); Calcium 7.6 mg/dL (8.5-10.1); Magnesium 2.5 mg/dL (1.6-2.6); Potassium 3.6 mmol/L (3.5-5.1)
[2020-12-28 05:51] LABS: Bilirubin, Total 0.8 mg/dL (0.2-1.0); Phosphorus 4.5 mg/dL (2.5-4.90); Total Protein 6.1 g/dL (6.4-8.2)
[2020-12-28] MEDS: LORazepam 2MG/ML-1ML VIAL IV PRN (05:52)
[2020-12-28] MEDS: MORPHINE SULF INJ 2 MG/ML SYRINGE 1ML IV PRN ×6 (05:53→22:47)
[2020-12-28 06:01] LABS: Band Neutrophils % (manual) 37; Eosinophils % (manual) 2 (0-7); Lymphocytes % (manual) 23 (10.0-50.0); Metamyelocytes % 2; Monocytes % (manual) 12 (0-12); Myelocytes % 1
[2020-12-28] MEDS: BUDESONIDE (INHALATION) 0.5 MG/2 ML NEB NEB SCH ×2 (06:57→18:52)
[2020-12-28] MEDS: LISINOPRIL 5 MG TAB PO SCH (10:00)
[2020-12-28] MEDS: CARVEDILOL 3.125 MG TAB PO SCH ×3 (10:00→22:47)
[2020-12-28] MEDS: ESOMEPRAZOLE 40 MG/5ml VIAL INJ IV SCH (10:30)
[2020-12-28] MEDS: SODIUM CHLOR 0.9% PF (SALINE LOCK) 10ML VIAL/SYR IV SCH ×2 (10:30→22:00)
[2020-12-28] MEDS ORDERED: TPN PER PHARMACY IV NR ×9 (20:00)
[2020-12-29] MEDS: MORPHINE SULF INJ 2 MG/ML SYRINGE 1ML IV PRN ×3 (03:03→17:17)
[2020-12-29] MEDS: IPRATROPIUM BROM 0.5 MG/2.5ML INH SOL NEB SCH ×5 (03:08→23:48)
[2020-12-29] MEDS: LEVALBUTEROL HCL 1.25 MG/3 ML NEB NEB SCH ×5 (03:08→23:42)
[2020-12-29 05:04] VITALS: BP 109/67
[2020-12-29 07:51] LABS: Hematocrit 31.2 % (36.0-46.0); Mean Corpuscular Hemoglobin 30.4 pg (28.0-32.0); Mean Corpuscular Hgb Conc. 32.2 g/dL (32.0-36.0); Mean Corpuscular Volume 94.4 fL (80.0-100.0); Platelet Count (auto) 497 10^3/uL (140-450); Red Blood Cells 3.31 10^6/uL (4.0-5.20); Red Cell Distribution Width 15.3 % (11.8-14.3); White Blood Cell 12.4 10^3/uL (4.4-10.8)
[2020-12-29 07:57] LABS: Basophils % (manual) 0 (0.0-2.0); Blast Cells 0; Eosinophils % (manual) 0 (0-7); Promyelocytes % 0; Reactive Lymphocytes 0
[2020-12-29 08:11] LABS: Potassium 4.1 mmol/L (3.5-5.1)
[2020-12-29 08:22] LABS: Albumin 1.8 g/dL (3.4-5.0); BUN/Creatinine Ratio 29.3; Bilirubin, Total 0.8 mg/dL (0.2-1.0); Calcium 8.3 mg/dL (8.5-10.1); Total Protein 6.6 g/dL (6.4-8.2)
[2020-12-29 08:25] LABS: Band Neutrophils % (manual) 23; Lymphocytes % (manual) 24 (10.0-50.0); Metamyelocytes % 3; Monocytes % (manual) 5 (0-12); Myelocytes % 2
[2020-12-29 09:11] VITALS: BP 120/76
[2020-12-29] MEDS ORDERED: PANTOPRAZOLE 40 MG TAB PO SCH (10:00)
[2020-12-29] MEDS: BUDESONIDE (INHALATION) 0.5 MG/2 ML NEB NEB SCH (10:30)
[2020-12-29] MEDS: LORazepam 2MG/ML-1ML VIAL IV PRN (11:49)
[2020-12-29] MEDS: SUCRALFATE 1 GM/10 ML ORAL SUSP PO SCH ×3 (11:49→21:45)
[2020-12-29] MEDS: PANTOPRAZOLE 40 MG TAB PO SCH ×2 (11:50→21:45)
[2020-12-29] MEDS: levETIRAcetam 500 MG TAB PO SCH ×2 (11:50→21:45)
[2020-12-29] MEDS: SODIUM CHLOR 0.9% PF (SALINE LOCK) 10ML VIAL/SYR IV SCH ×2 (11:51→21:45)
[2020-12-29] MEDS: CARVEDILOL 3.125 MG TAB PO SCH ×2 (11:51→21:44)
[2020-12-29 13:23] VITALS: BP 130/74
[2020-12-29] MEDS: OXYCODONE W/ ACETAMINOPHEN 5/325MG TABLET PO PRN (13:26)
[2020-12-29 17:07] VITALS: BP 122/73
[2020-12-29 21:34] VITALS: BP 125/71
[2020-12-29] MEDS: HYOSCYAMINE SULF 0.125 MG ODT TAB PO PRN (21:44)
[2020-12-29] MEDS ORDERED: TEMAZEPAM 15 MG CAP PO ONE (21:45)
[2020-12-30 02:52] VITALS: BP 125/71
[2020-12-30 04:40] VITALS: BP 100/55
[2020-12-30] MEDS: HYOSCYAMINE SULF 0.125 MG ODT TAB PO PRN ×2 (05:50→22:00)
[2020-12-30] MEDS: OXYCODONE W/ ACETAMINOPHEN 5/325MG TABLET PO PRN (05:51)
[2020-12-30] MEDS: LEVALBUTEROL HCL 1.25 MG/3 ML NEB NEB SCH ×3 (06:25→18:19)
[2020-12-30] MEDS: IPRATROPIUM BROM 0.5 MG/2.5ML INH SOL NEB SCH ×3 (06:26→18:19)
[2020-12-30] MEDS: SUCRALFATE 1 GM/10 ML ORAL SUSP PO SCH ×4 (06:48→22:00)
[2020-12-30 07:32] LABS: Albumin 1.9 g/dL (3.4-5.0); Bilirubin, Direct 0.6 mg/dL (0-0.2)
[2020-12-30 07:35] LABS: Total Protein 6.3 g/dL (6.4-8.2)
[2020-12-30 09:09] VITALS: BP 106/67
[2020-12-30 09:28] LABS: Hepatitis B Surface Antibody Negative
[2020-12-30] MEDS: SODIUM CHLOR 0.9% PF (SALINE LOCK) 10ML VIAL/SYR IV SCH ×2 (09:42→22:00)
[2020-12-30] MEDS: levETIRAcetam 500 MG TAB PO SCH ×2 (09:43→22:00)
[2020-12-30] MEDS: MORPHINE SULF INJ 2 MG/ML SYRINGE 1ML IV PRN (09:43)
[2020-12-30] MEDS: CARVEDILOL 3.125 MG TAB PO SCH ×2 (09:43→22:00)
[2020-12-30] MEDS: PANTOPRAZOLE 40 MG TAB PO SCH ×2 (09:43→22:00)
[2020-12-30 10:00] LABS: Hepatitis A Total Antibody Negative
[2020-12-30] MEDS ORDERED: DIGOXIN (250MCG/ML) 2 ML AMPULE IV ONE (10:00)
[2020-12-30 10:16] LABS: Hemoglobin 9.2 g/dL (12.2-16.2)
[2020-12-30 10:17] LABS: Hematocrit 27.9 % (36.0-46.0); Mean Corpuscular Hemoglobin 29.6 pg (28.0-32.0); Mean Corpuscular Hgb Conc. 33.1 g/dL (32.0-36.0); Mean Corpuscular Volume 89.3 fL (80.0-100.0); Platelet Count (auto) 576 10^3/uL (140-450); Red Blood Cells 3.12 10^6/uL (4.0-5.20); Red Cell Distribution Width 14.6 % (11.8-14.3)
[2020-12-30 10:26] LABS: Basophils % (manual) 0 (0.0-2.0); Blast Cells 0; Promyelocytes % 0; Reactive Lymphocytes 0
[2020-12-30 11:12] LABS: Hepatitis B Core Total AB Negative
[2020-12-30 11:13] LABS: Hepatitis B Surface Antigen Negative (Negative); Hepatitis C Antibody Negative (Negative)
[2020-12-30 11:24] LABS: Band Neutrophils % (manual) 19; Eosinophils % (manual) 1 (0-7); Lymphocytes % (manual) 14 (10.0-50.0); Metamyelocytes % 2; Monocytes % (manual) 8 (0-12); Myelocytes % 4
[2020-12-30] MEDS: DIGOXIN (250MCG/ML) 2 ML AMPULE IV SCH ×2 (12:22→17:21)
[2020-12-30] MEDS: oxyCODONE HCL 5MG TAB PO PRN ×2 (12:23→17:28)
[2020-12-30 12:40] VITALS: BP 111/75
[2020-12-30] MEDS: LORazepam 2MG/ML-1ML VIAL IV PRN (15:43)
[2020-12-30 17:05] VITALS: BP 138/72
[2020-12-30 22:00] VITALS: BP 123/89
[2020-12-30] MEDS ORDERED: LORazepam 0.5 MG TAB PO ONE (22:00)
[2020-12-31] MEDS: oxyCODONE HCL 5MG TAB PO PRN ×3 (00:14→21:39)
[2020-12-31] MEDS: DIGOXIN (250MCG/ML) 2 ML AMPULE IV SCH (00:17)
[2020-12-31] MEDS: IPRATROPIUM BROM 0.5 MG/2.5ML INH SOL NEB SCH ×2 (00:18→05:56)
[2020-12-31] MEDS: LEVALBUTEROL HCL 1.25 MG/3 ML NEB NEB SCH ×2 (00:18→05:56)
[2020-12-31 05:00] VITALS: BP 110/57
[2020-12-31] MEDS: HYOSCYAMINE SULF 0.125 MG ODT TAB PO PRN ×2 (05:56→11:57)
[2020-12-31] MEDS: SUCRALFATE 1 GM/10 ML ORAL SUSP PO SCH ×4 (06:52→21:38)
[2020-12-31 08:51] VITALS: BP 117/70
[2020-12-31] MEDS: SODIUM CHLOR 0.9% PF (SALINE LOCK) 10ML VIAL/SYR IV SCH ×2 (09:09→21:11)
[2020-12-31] MEDS: PANTOPRAZOLE 40 MG TAB PO SCH (09:10)
[2020-12-31] MEDS: levETIRAcetam 500 MG TAB PO SCH ×2 (09:10→21:38)
[2020-12-31] MEDS: CARVEDILOL 3.125 MG TAB PO SCH (09:11)
[2020-12-31] MEDS: LORazepam 2MG/ML-1ML VIAL IV PRN ×3 (09:12→23:00)
[2020-12-31] MEDS ORDERED: DIGOXIN 0.125 MG TAB PO SCH (10:00)
[2020-12-31] MEDS ORDERED: IPRATROPIUM BROM 0.5 MG/2.5ML INH SOL NEB PRN (10:15)
[2020-12-31] MEDS ORDERED: LEVALBUTEROL HCL 1.25 MG/3 ML NEB NEB PRN (10:15)
[2020-12-31] MEDS ORDERED: IOHEXOL 300 MG/ML 100ML BOTTLE IJ ONE (11:11)
[2020-12-31 11:32] LABS: Hematocrit 32.6 % (36.0-46.0); Mean Corpuscular Hemoglobin 29.4 pg (28.0-32.0); Mean Corpuscular Hgb Conc. 33.8 g/dL (32.0-36.0); Red Blood Cells 3.75 10^6/uL (4.0-5.20); Red Cell Distribution Width 14.7 % (11.8-14.3); White Blood Cell 13.3 10^3/uL (4.4-10.8)
[2020-12-31 11:37] LABS: Basophils % (manual) 0 (0.0-2.0); Blast Cells 0; Platelet Count (auto) 771 10^3/uL (140-450); Promyelocytes % 0; Reactive Lymphocytes 0
[2020-12-31 11:38] LABS: Bilirubin, Total 0.7 mg/dL (0.2-1.0); Total Protein 6.1 g/dL (6.4-8.2)
[2020-12-31 13:00] VITALS: BP 137/66
[2020-12-31 14:17] LABS: Band Neutrophils % (manual) 12; Eosinophils % (manual) 2 (0-7); Lymphocytes % (manual) 22 (10.0-50.0); Metamyelocytes % 1; Monocytes % (manual) 9 (0-12); Myelocytes % 1
[2020-12-31 16:30] VITALS: BP 106/47
[2020-12-31] MEDS: METOPROLOL TARTRATE 25 MG TAB PO SCH (21:55)
[2020-12-31 22:00] VITALS: BP 123/77
[2020-12-31] MEDS ORDERED: APIXABAN 5 MG TAB PO SCH (22:00)
[2021-01-01] MEDS: oxyCODONE HCL 5MG TAB PO PRN ×4 (03:51→22:04)
[2021-01-01 05:00] VITALS: BP 109/76
[2021-01-01] MEDS: LORazepam 2MG/ML-1ML VIAL IV PRN ×3 (05:20→19:39)
[2021-01-01] MEDS: SUCRALFATE 1 GM/10 ML ORAL SUSP PO SCH ×4 (06:33→21:48)
[2021-01-01 07:10] LABS: Hematocrit 27.8 % (36.0-46.0); Hemoglobin 9.1 g/dL (12.2-16.2); Mean Corpuscular Hemoglobin 29.1 pg (28.0-32.0); Mean Corpuscular Hgb Conc. 32.8 g/dL (32.0-36.0); Mean Corpuscular Volume 88.7 fL (80.0-100.0); Platelet Count (auto) 749 10^3/uL (140-450); Red Blood Cells 3.13 10^6/uL (4.0-5.20); Red Cell Distribution Width 14.5 % (11.8-14.3); White Blood Cell 14.3 10^3/uL (4.4-10.8)
[2021-01-01 07:13] LABS: Basophils % (manual) 0 (0.0-2.0); Blast Cells 0; Myelocytes % 0; Promyelocytes % 0; Reactive Lymphocytes 0
[2021-01-01 07:30] LABS: Albumin 1.9 g/dL (3.4-5.0); Bilirubin, Direct 0.3 mg/dL (0-0.2); Bilirubin, Total 0.5 mg/dL (0.2-1.0); Total Protein 6.2 g/dL (6.4-8.2)
[2021-01-01 08:52] VITALS: BP 106/66
[2021-01-01] MEDS: levETIRAcetam 500 MG TAB PO SCH ×2 (09:44→21:49)
[2021-01-01] MEDS: SODIUM CHLOR 0.9% PF (SALINE LOCK) 10ML VIAL/SYR IV SCH ×2 (09:46→21:48)
[2021-01-01] MEDS: METOPROLOL TARTRATE 25 MG TAB PO SCH ×2 (09:46→21:49)
[2021-01-01] MEDS ORDERED: PANTOPRAZOLE 40 MG TAB PO SCH (10:00)
[2021-01-01 12:01] LABS: Band Neutrophils % (manual) 21; Eosinophils % (manual) 1 (0-7); Lymphocytes % (manual) 27 (10.0-50.0); Metamyelocytes % 3; Monocytes % (manual) 6 (0-12)
[2021-01-01 12:29] VITALS: BP 112/70
[2021-01-01] MEDS: MEROPENEM 1GM IVPB 100 ML IV SCH (16:40)
[2021-01-01 16:52] VITALS: BP 118/71
[2021-01-01] MEDS: PANTOPRAZOLE 40 MG TAB PO SCH (21:50)
[2021-01-01 22:12] VITALS: BP 115/67
[2021-01-02] VITALS (8 sets, daily range): BP systolic 101–122; BP diastolic 59–81
[2021-01-02] MEDS: MEROPENEM 1GM IVPB 100 ML IV SCH ×3 (00:32→16:00)
[2021-01-02] MEDS: LORazepam 2MG/ML-1ML VIAL IV PRN ×4 (02:14→23:11)
[2021-01-02] MEDS: SUCRALFATE 1 GM/10 ML ORAL SUSP PO SCH ×4 (06:37→22:49)
[2021-01-02] MEDS: oxyCODONE HCL 5MG TAB PO PRN ×3 (06:38→19:57)
[2021-01-02 06:55] LABS: Hemoglobin 10.2 g/dL (12.2-16.2)
[2021-01-02 06:57] LABS: Hematocrit 30.9 % (36.0-46.0); Mean Corpuscular Hemoglobin 29.2 pg (28.0-32.0); Mean Corpuscular Volume 88.6 fL (80.0-100.0); Red Blood Cells 3.48 10^6/uL (4.0-5.20); Red Cell Distribution Width 14.5 % (11.8-14.3); White Blood Cell 13.3 10^3/uL (4.4-10.8)
[2021-01-02 07:04] LABS: Potassium 3.2 mmol/L (3.5-5.1)
[2021-01-02 07:07] LABS: Phosphorus 4.3 mg/dL (2.5-4.90)
[2021-01-02 07:14] LABS: Albumin 2.1 g/dL (3.4-5.0); BUN/Creatinine Ratio 10.1; Bilirubin, Total 0.7 mg/dL (0.2-1.0); Calcium 8.2 mg/dL (8.5-10.1); Total Protein 6.9 g/dL (6.4-8.2)
[2021-01-02 07:18] LABS: INR 2.97 (0.9-1.15); Partial Thromboplastin Time 55.2 sec (23.0-31.2)
[2021-01-02 07:55] LABS: Platelet Count (auto) 884 10^3/uL (140-450)
[2021-01-02 07:56] LABS: Basophils % (manual) 0 (0.0-2.0); Blast Cells 0; Eosinophils % (manual) 0 (0-7); Myelocytes % 0; Promyelocytes % 0; Reactive Lymphocytes 0
[2021-01-02 08:50] LABS: % Iron Saturation 11.1 % (15-50)
[2021-01-02] MEDS: PANTOPRAZOLE 40 MG TAB PO SCH ×2 (10:20→22:50)
[2021-01-02] MEDS: SODIUM CHLOR 0.9% PF (SALINE LOCK) 10ML VIAL/SYR IV SCH ×2 (10:20→22:51)
[2021-01-02] MEDS: levETIRAcetam 500 MG TAB PO SCH ×2 (10:20→22:50)
[2021-01-02] MEDS: METOPROLOL TARTRATE 25 MG TAB PO SCH ×2 (10:20→22:50)
[2021-01-02 11:35] LABS: Band Neutrophils % (manual) 19; Lymphocytes % (manual) 25 (10.0-50.0); Metamyelocytes % 2; Monocytes % (manual) 13 (0-12)
[2021-01-02] MEDS ORDERED: FERROUS SULFATE 300 MG/5 ML ORAL LIQ PO ONE (14:45)
[2021-01-02] MEDS ORDERED: POTASSIUM CHL 20MEQ/100ML 100 ML IV ONE (14:45)
[2021-01-02] MEDS ORDERED: PHYTONADIONE (VIT K)10 MG/ML 1ML VIAL SUBCUT ONE (14:45)
[2021-01-02] MEDS: FERROUS SULFATE 300 MG/5 ML ORAL LIQ PO SCH (17:36)
[2021-01-03] VITALS (7 sets, daily range): BP systolic 109–129; BP diastolic 65–83
[2021-01-03] MEDS: MEROPENEM 1GM IVPB 100 ML IV SCH ×2 (00:30→09:00)
[2021-01-03] MEDS: SUCRALFATE 1 GM/10 ML ORAL SUSP PO SCH ×3 (06:49→17:00)
[2021-01-03] MEDS: oxyCODONE HCL 5MG TAB PO PRN ×2 (06:54→12:42)
[2021-01-03 07:34] LABS: Red Cell Distribution Width 14.2 % (11.8-14.3)
[2021-01-03 07:36] LABS: Hematocrit 26.9 % (36.0-46.0); Hemoglobin 8.9 g/dL (12.2-16.2); Mean Corpuscular Hemoglobin 29.4 pg (28.0-32.0); Mean Corpuscular Volume 89.2 fL (80.0-100.0); Red Blood Cells 3.01 10^6/uL (4.0-5.20); White Blood Cell 13.1 10^3/uL (4.4-10.8)
[2021-01-03 07:51] LABS: INR 1.23 (0.9-1.15); Partial Thromboplastin Time 33.4 sec (23.0-31.2)
[2021-01-03 07:54] LABS: Potassium 3.3 mmol/L (3.5-5.1)
[2021-01-03 07:56] LABS: Platelet Count (auto) 826 10^3/uL (140-450)
[2021-01-03 07:58] LABS: Basophils % (manual) 0 (0.0-2.0); Blast Cells 0; Promyelocytes % 0; Reactive Lymphocytes 0
[2021-01-03 08:04] LABS: BUN/Creatinine Ratio 6.9; Bilirubin, Total 0.8 mg/dL (0.2-1.0); Calcium 7.9 mg/dL (8.5-10.1); Magnesium 2.1 mg/dL (1.6-2.6); Phosphorus 3.3 mg/dL (2.5-4.90); Total Protein 6.4 g/dL (6.4-8.2)
[2021-01-03 08:24] LABS: Band Neutrophils % (manual) 18; Eosinophils % (manual) 3 (0-7); Lymphocytes % (manual) 41 (10.0-50.0); Metamyelocytes % 4; Monocytes % (manual) 6 (0-12); Myelocytes % 2
[2021-01-03] MEDS: LORazepam 2MG/ML-1ML VIAL IV PRN ×2 (09:00→15:51)
[2021-01-03] MEDS: FERROUS SULFATE 300 MG/5 ML ORAL LIQ PO SCH ×2 (09:01→12:36)
[2021-01-03] MEDS ORDERED: POTASSIUM CHL 20 Meq TABLET PO SCH (10:00)
[2021-01-03] MEDS: SODIUM CHLOR 0.9% PF (SALINE LOCK) 10ML VIAL/SYR IV SCH (11:21)
[2021-01-03] MEDS: PANTOPRAZOLE 40 MG TAB PO SCH (11:22)
[2021-01-03] MEDS: levETIRAcetam 500 MG TAB PO SCH (11:22)
[2021-01-03] MEDS: METOPROLOL TARTRATE 25 MG TAB PO SCH (11:23)
[2021-01-03] MEDS ORDERED: SUCR1TAB22 OR (11:39)
[2021-01-03] MEDS ORDERED: PANT40T PO (11:39)
[2021-01-03] MEDS ORDERED: METR500T14 PO (11:41)
[2021-01-03] MEDS ORDERED: MET25T PO (11:51)
[2021-01-03] MEDS ORDERED: FER325T PO (11:51)
[2021-01-03] MEDS ORDERED: AMOX-277 PO ×2 (11:51→13:01)
[2021-01-03] MEDS ORDERED: AMOXICILLIN/CLAVUL 875 MG TAB PO ONE (12:15)
== END 2021-01-03 17:34 | disposition home health service (06) | DRG 812 ==
LOC: EDBD 12:21 → ER 12:21 → EDUNIT# 12:21 → TELE 15:38 → ICU WEST 23:32 → TELE-CENTR 12-28 16:07
PROVIDERS: ADMIT Hospitalist; ATTEND Internal Medicine
PROC: 5A1955Z Respiratory Ventilation, Greater than 96 Consecutive Hours (ICD-10-PCS; 2020-12-15)
PROC: 5A12012 Performance of Cardiac Output, Single, Manual (ICD-10-PCS; 2020-12-15)
PROC: 0BH17EZ Insertion of Endotracheal Airway into Trachea, Via Natural or Artificial Opening (ICD-10-PCS; 2020-12-15)
PROC: 04HK33Z Insertion of Infusion Device into Right Femoral Artery, Percutaneous Approach (ICD-10-PCS; 2020-12-15)
PROC: B44LZZZ Ultrasonography of Femoral Artery (ICD-10-PCS; 2020-12-15)
PROC: 02H633Z Insertion of Infusion Device into Right Atrium, Percutaneous Approach (ICD-10-PCS; 2020-12-15)
PROC: B548ZZA Ultrasonography of Superior Vena Cava, Guidance (ICD-10-PCS; 2020-12-15)
PROC: 0DJD8ZZ Inspection of Lower Intestinal Tract, Via Natural or Artificial Opening Endoscopic (ICD-10-PCS; principal; 2020-12-21 11:00)
PROC: 0DJD8ZZ Inspection of Lower Intestinal Tract, Via Natural or Artificial Opening Endoscopic (ICD-10-PCS; 2020-12-23)
PROC: 5A09557 Assistance with Respiratory Ventilation, Greater than 96 Consecutive Hours, Continuous Positive Airway Pressure (ICD-10-PCS; 2020-12-24)
PROC: 30233N1 Transfusion of Nonautologous Red Blood Cells into Peripheral Vein, Percutaneous Approach (ICD-10-PCS; 2020-12-27)
PROC: 30233K1 Transfusion of Nonautologous Frozen Plasma into Peripheral Vein, Percutaneous Approach (ICD-10-PCS; 2021-01-02)
DX: T40.411A Poisoning by fentanyl or fentanyl analogs, accidental (unintentional), initial encounter (principal); K72.00 Acute and subacute hepatic failure without coma; J96.01 Acute respiratory failure with hypoxia; I46.9 Cardiac arrest, cause unspecified; J69.0 Pneumonitis due to inhalation of food and vomit; E43 Unspecified severe protein-calorie malnutrition; A41.9 Sepsis, unspecified organism; G92 Toxic encephalopathy; Z20.822 Contact with and (suspected) exposure to COVID-19; N17.0 Acute kidney failure with tubular necrosis; K55.9 Vascular disorder of intestine, unspecified; G93.1 Anoxic brain damage, not elsewhere classified; E87.2 Acidosis; F11.20 Opioid dependence, uncomplicated; E83.52 Hypercalcemia; E87.6 Hypokalemia; G89.4 Chronic pain syndrome; I50.41 Acute combined systolic (congestive) and diastolic (congestive) heart failure; D50.9 Iron deficiency anemia, unspecified; N18.32 Chronic kidney disease, stage 3b; D68.9 Coagulation defect, unspecified; E78.1 Pure hyperglyceridemia; E66.01 Morbid (severe) obesity due to excess calories; F41.9 Anxiety disorder, unspecified; G40.401 Other generalized epilepsy and epileptic syndromes, not intractable, with status epilepticus; I42.9 Cardiomyopathy, unspecified; I82.621 Acute embolism and thrombosis of deep veins of right upper extremity; I82.A11 Acute embolism and thrombosis of right axillary vein; I82.B11 Acute embolism and thrombosis of right subclavian vein; M62.82 Rhabdomyolysis; I13.0 Hypertensive heart and chronic kidney disease with heart failure and stage 1 through stage 4 chronic kidney disease, or unspecified chronic kidney disease; F19.10 Other psychoactive substance abuse, uncomplicated; F32.9 Major depressive disorder, single episode, unspecified; Y92.89 Other specified places as the place of occurrence of the external cause; Z68.35 Body mass index [BMI] 35.0-35.9, adult; Z82.49 Family history of ischemic heart disease and other diseases of the circulatory system; Z83.3 Family history of diabetes mellitus; Z81.1 Family history of alcohol abuse and dependence; Z98.51 Tubal ligation status
CPT/HCPCS: 31500; 36415; 36556; 36569; 36600; 70450; 71045; 72125; 74176; 74177; 74250; 74270; 76705; 80048; 80053; 80061; 80076; 80162; 80202; 80307; 80320; 80329; 81001; 81025; 82040; 82306; 82550; 82805; 82962; 83036; 83540; 83550; 83605; 83735; 83874; 83880; 84100; 84439; 84443; 84478; 84481; 84484; 84702; 85007; 85025; 85027; 85379; 85610; 85730; 86038; 86704; 86706; 86708; 86803; 86850; 86900; 86901; 86920; 87040; 87070; 87077; 87081; 87086; 87186; 87205; 87340; 87426; 87493; 93005; 93306; 93970; 94002; 94003; 94640; 94660; 94667; 94668; 95819; 96365; 96375; 97110; 97116; 97530; A4618; C9113; G0378; J0330; J0696; J1100; J1815; J1956; J2185; J2250; J2405; J2704; J3430; J3480; J7060; J7131; P9047

== ENCOUNTER 2021-01-18 10:10 | Inpatient (IN) | payer OTHER ==
[~2021-01-18] VITALS: Ht 170.2 cm; Wt 82.4 kg
[~2021-01-18 10:10] MED LIST changes: +AMOX-277 PO; -DIVA250T4 PO; +FER325T PO; +LEVE500T3 PO; +LISI-716 PO; +MET25T PO; +METR500T14 PO; +PANT40T PO; -PERCOT PO; +SUCR1TAB22 OR; +SUMA100T15 PO; +TIZA4TAB7 PO
[2021-01-18] MEDS ORDERED: SODIUM CHLORIDE 0.9% 1,000 ML IV ONE (10:45)
[2021-01-18 11:08] LABS: Basophils # (auto) 0 10 ^3/uL (0-0.2); Basophils % (auto) 0.3 % (0.0-2.0); Eosinophils # (auto) 0 10 ^3/uL (0-0.8); Eosinophils % (auto) 0.4 % (0.0-7.0); Hematocrit 31.5 % (36.0-46.0); Hemoglobin 10.2 g/dL (12.2-16.2); Lymphocytes # (auto) 1.6 10 ^3/uL (0.4-5.4); Lymphocytes % (auto) 15.4 % (10.0-50.0); Mean Corpuscular Hemoglobin 28.7 pg (28.0-32.0); Mean Corpuscular Hgb Conc. 32.3 g/dL (32.0-36.0); Mean Corpuscular Volume 88.8 fL (80.0-100.0); Monocytes # (auto) 1.5 10 ^3/uL (0-1.3); Monocytes % (auto) 14.9 % (0.0-12.0); Neutrophils # (auto) 7.2 10 ^3/uL (1.6-8.6); Red Blood Cells 3.55 10^6/uL (4.0-5.20); Red Cell Distribution Width 15.2 % (11.8-14.3); White Blood Cell 10.4 10^3/uL (4.4-10.8)
[2021-01-18 11:32] LABS: Calcium 7.9 mg/dL (8.5-10.1); Chloride 106 mmol/L (98-107); Sodium 141 mmol/L (136-145)
[2021-01-18 11:41] LABS: Alanine Aminotransferase 8 U/L (13-56); Albumin 1.8 g/dL (3.4-5.0); Alkaline Phosphatase 118 U/L (45-117); Anion Gap 10 (5-15); Aspartate Aminotransferase 8 U/L (15-37); BUN/Creatinine Ratio 8.4; Bilirubin, Total 0.4 mg/dL (0.2-1.0); Blood Urea Nitrogen 9 mg/dL (7-18); Carbon Dioxide 25 mmol/L (21-32); GFR African American 73 mL/min; GFR Non-African American 60 mL/min; Glucose 94 mg/dL (74-106)
[2021-01-18 11:43] LABS: Potassium 2.7 mmol/L (3.5-5.1)
[2021-01-18] MEDS: POTASSIUM CHL 20MEQ/100ML 100 ML IV SCH ×3 (12:36→16:37)
[2021-01-18 14:04] LABS: Urine Bacteria NONE SEEN /hpf (None Seen); Urine Blood Negative /uL (Negative); Urine Hyaline Cast FEW /lpf (0 - 2); Urine Specific Gravity 1.011 (1.001-1.035); Urine WBC 5 /hpf (0 - 5)
[2021-01-18] MEDS ORDERED: MORPHINE SULFATE INJECTION 2 MG/ML SYRG IV PRN (15:30)
[2021-01-18] MEDS ORDERED: NITROGLYCERIN 0.4 MG SL TAB SL PRN (15:30)
[2021-01-18] MEDS: MORPHINE SULFATE INJECTION 2 MG/ML SYRG IV PRN (19:52)
[2021-01-18] MEDS: METOPROLOL TARTRATE 25 MG TAB PO SCH (22:04)
[2021-01-18] MEDS: ALPRAZolam 0.5 MG TAB PO SCH (22:04)
[2021-01-18 23:10] VITALS: BP 107/45
[2021-01-19 00:26] VITALS: BP 107/45
[2021-01-19] MEDS: MORPHINE SULFATE INJECTION 2 MG/ML SYRG IV PRN ×2 (04:35→17:00)
[2021-01-19 05:00] VITALS: BP 127/87
[2021-01-19 06:18] LABS: Potassium 3.4 mmol/L (3.5-5.1)
[2021-01-19 06:23] LABS: Calcium 7.9 mg/dL (8.5-10.1)
[2021-01-19 06:26] LABS: Hematocrit 31.6 % (36.0-46.0); Hemoglobin 10.1 g/dL (12.2-16.2); Mean Corpuscular Hemoglobin 29.5 pg (28.0-32.0); Mean Corpuscular Hgb Conc. 31.9 g/dL (32.0-36.0); Mean Corpuscular Volume 92.5 fL (80.0-100.0); Red Blood Cells 3.42 10^6/uL (4.0-5.20); Red Cell Distribution Width 16.2 % (11.8-14.3); White Blood Cell 7.8 10^3/uL (4.4-10.8)
[2021-01-19 06:32] LABS: Basophils % (manual) 0 (0.0-2.0); Blast Cells 0; Eosinophils % (manual) 0 (0-7); Myelocytes % 0; Promyelocytes % 0; Reactive Lymphocytes 0
[2021-01-19] MEDS: FERROUS SULFATE 325mg EC TAB PO SCH (08:00)
[2021-01-19 09:00] VITALS: BP 107/66
[2021-01-19 09:08] LABS: Band Neutrophils % (manual) 3; Lymphocytes % (manual) 22 (10.0-50.0); Metamyelocytes % 1; Monocytes % (manual) 24 (0-12)
[2021-01-19] MEDS: METOPROLOL TARTRATE 25 MG TAB PO SCH ×2 (09:27→22:23)
[2021-01-19] MEDS: PANTOPRAZOLE 40 MG TAB PO SCH (09:27)
[2021-01-19] MEDS: ALPRAZolam 0.5 MG TAB PO SCH ×2 (09:28→22:23)
[2021-01-19] MEDS: LISINOPRIL 10 MG TAB PO SCH (09:28)
[2021-01-19] MEDS: SODIUM CHLORIDE 0.9% 1,000 ML IV SCH ×2 (11:45→18:46)
[2021-01-19 12:50] LABS: Alcohol, Urine < 3.0 mg/dL (0-10); Amphetamine Screen, Urine NEGATIVE (NEGATIVE); Barbiturate Scree,Urine NEGATIVE (NEGATIVE); Cannabinoid Screen, Urine NEGATIVE (NEGATIVE); Cocaine Screen, Urine NEGATIVE (NEGATIVE); Opiate Scree,Urine NEGATIVE (NEGATIVE); Phencyclidine Screen, Urine NEGATIVE (NEGATIVE)
[2021-01-19 12:58] LABS: Benzodiazephine Screen, Urine POSITIVE (NEGATIVE)
[2021-01-19 13:00] VITALS: BP 117/81
[2021-01-19 13:38] LABS: Alcohol, Urine < 3.0 mg/dL (0-10); Amphetamine Screen, Urine NEGATIVE (NEGATIVE); Barbiturate Scree,Urine NEGATIVE (NEGATIVE); Cannabinoid Screen, Urine NEGATIVE (NEGATIVE)
[2021-01-19 13:46] LABS: Benzodiazephine Screen, Urine POSITIVE (NEGATIVE); Cocaine Screen, Urine NEGATIVE (NEGATIVE); Opiate Scree,Urine POSITIVE (NEGATIVE); Phencyclidine Screen, Urine NEGATIVE (NEGATIVE)
[2021-01-19] MEDS ORDERED: PATIENTS OWN MEDICATION PO PRN (15:00)
[2021-01-19 17:00] VITALS: BP 119/80
[2021-01-19 22:00] VITALS: BP 136/66
[2021-01-19] MEDS: ZONISAMIDE 100MG PO SCH (22:00)
[2021-01-19] MEDS: levETIRAcetam 500 MG TAB PO SCH (22:22)
[2021-01-20] MEDS: SODIUM CHLORIDE 0.9% 1,000 ML IV SCH ×4 (01:05→22:06)
[2021-01-20] MEDS: MORPHINE SULFATE INJECTION 2 MG/ML SYRG IV PRN ×4 (01:54→21:32)
[2021-01-20 05:00] VITALS: BP 130/78
[2021-01-20] MEDS: FERROUS SULFATE 325mg EC TAB PO SCH (09:00)
[2021-01-20 09:14] VITALS: BP 104/64
[2021-01-20] MEDS ORDERED: [UNRECOGNIZED DRUG - OTHER] PO SCH (10:00)
[2021-01-20] MEDS: levETIRAcetam 500 MG TAB PO SCH ×2 (10:07→21:32)
[2021-01-20] MEDS: ALPRAZolam 0.5 MG TAB PO SCH ×2 (10:08→21:31)
[2021-01-20] MEDS: PANTOPRAZOLE 40 MG TAB PO SCH (10:08)
[2021-01-20] MEDS: METOPROLOL TARTRATE 25 MG TAB PO SCH ×2 (10:08→21:32)
[2021-01-20] MEDS: LISINOPRIL 10 MG TAB PO SCH (10:09)
[2021-01-20 13:09] VITALS: BP 111/80
[2021-01-20 22:00] VITALS: BP 119/64
[2021-01-20] MEDS: ZONISAMIDE 100MG PO SCH (22:00)
[2021-01-21] MEDS: SODIUM CHLORIDE 0.9% 1,000 ML IV SCH ×2 (03:57→10:09)
[2021-01-21 05:00] VITALS: BP 90/57
[2021-01-21 08:47] VITALS: BP 95/38
[2021-01-21] MEDS: LISINOPRIL 10 MG TAB PO SCH (10:00)
[2021-01-21] MEDS: METOPROLOL TARTRATE 25 MG TAB PO SCH (10:00)
[2021-01-21] MEDS: FERROUS SULFATE 325mg EC TAB PO SCH (10:08)
[2021-01-21] MEDS: levETIRAcetam 500 MG TAB PO SCH (10:08)
[2021-01-21] MEDS: ALPRAZolam 0.5 MG TAB PO SCH (10:09)
[2021-01-21] MEDS: PANTOPRAZOLE 40 MG TAB PO SCH (10:09)
[2021-01-21 11:01] VITALS: BP 95/38
== END 2021-01-21 12:30 | disposition home or self-care (01) | DRG 351 ==
LOC: EDBD 10:10 → ER 10:10 → TELE 15:29 → TELE-WESTW 22:50
PROVIDERS: ADMIT Nurse Practitioner Acute Care; ATTEND Family Medicine
PROC: 0T9B70Z Drainage of Bladder with Drainage Device, Via Natural or Artificial Opening (ICD-10-PCS; principal; 2021-01-18)
DX: M62.82 Rhabdomyolysis (principal); J96.90 Respiratory failure, unspecified, unspecified whether with hypoxia or hypercapnia; G92 Toxic encephalopathy; E44.0 Moderate protein-calorie malnutrition; G40.409 Other generalized epilepsy and epileptic syndromes, not intractable, without status epilepticus; D64.9 Anemia, unspecified; E66.9 Obesity, unspecified; E87.6 Hypokalemia; Z91.81 History of falling; Z20.822 Contact with and (suspected) exposure to COVID-19; G89.4 Chronic pain syndrome; F23 Brief psychotic disorder; T42.4X5A Adverse effect of benzodiazepines, initial encounter; R25.1 Tremor, unspecified; F31.9 Bipolar disorder, unspecified; M54.9 Dorsalgia, unspecified; R00.0 Tachycardia, unspecified; F41.9 Anxiety disorder, unspecified; I10 Essential (primary) hypertension; Z82.49 Family history of ischemic heart disease and other diseases of the circulatory system; Z83.3 Family history of diabetes mellitus; Z87.01 Personal history of pneumonia (recurrent); Z79.899 Other long term (current) drug therapy; Z90.710 Acquired absence of both cervix and uterus; Z88.1 Allergy status to other antibiotic agents; Z88.5 Allergy status to narcotic agent; Z88.8 Allergy status to other drugs, medicaments and biological substances; Z98.51 Tubal ligation status; Z68.26 Body mass index [BMI] 26.0-26.9, adult; Y92.89 Other specified places as the place of occurrence of the external cause
CPT/HCPCS: 36415; 51702; 70450; 71045; 80048; 80053; 80307; 81001; 82550; 82962; 84132; 84484; 85007; 85025; 85027; 87081; 87426; 92610; 93005; 96361; 96374; 97116; 97530; G0378; J3480